=== PATIENT | female | born 1990 | race Two or more races ===

== ENCOUNTER → 2017-03-26 | Outpatient (REF) | payer OTHER | LOC: M SFHCPLAZ 09:14 | DX: Z12.4 Encounter for screening for malignant neoplasm of cervix (principal) ==

== ENCOUNTER → 2017-11-20 | Outpatient (REF) | payer SELFPAY, OTHER ==
[2017-11-20 14:13] LABS: ALBUMIN 3.8 GM/DL (3.2-5.2); ALBUMIN/GLOBULIN RATIO 1.12 (1.00-1.93); ALKALINE PHOSPHATASE 81 U/L (45-117); ALT/SGPT 14 U/L (12-78); ANION GAP 9 MEQ/L (8-16); AST/SGOT 9 U/L (7-37); BILIRUBIN,TOTAL 0.3 MG/DL (0.2-1.0); BLOOD UREA NITROGEN 13 MG/DL (7-18); CALCIUM LEVEL 9.3 MG/DL (8.5-10.1); CARBON DIOXIDE LEVEL 27 MEQ/L (21-32); CHLORIDE LEVEL 107 MEQ/L (98-107); CREATININE FOR GFR 0.86 MG/DL (0.55-1.30); GLOMERULAR FILTRATION RATE > 60.0 (>60); GLUCOSE, FASTING 67 MG/DL (70-100); LIPASE 126 U/L (73-393); POTASSIUM SERUM 4.6 MEQ/L (3.5-5.1); SODIUM LEVEL 143 MEQ/L (136-145); TOTAL PROTEIN 7.2 GM/DL (6.4-8.2)
== END ==
LOC: M SFHCPLAZ 11:41
DX: R10.13 Epigastric pain (principal)
CPT/HCPCS: 83690

== ENCOUNTER 2018-02-13 11:16 | Emergency (ER) | payer OTHER ==
[2018-02-13] MEDS: ACETAMINOPH W/CODEINE #3 TAB UD PO (12:30)
== END 2018-02-13 12:37 | disposition home or self-care (01) ==
LOC: M ED 11:16
DX: S30.0XXA Contusion of lower back and pelvis, initial encounter (principal); W10.8XXA Fall (on) (from) other stairs and steps, initial encounter; Y92.018 Other place in single-family (private) house as the place of occurrence of the external cause; Z79.899 Other long term (current) drug therapy
CPT/HCPCS: 72220

== ENCOUNTER → 2018-04-16 | Outpatient (CLI) | payer OTHER ==
[~2018-04-16] MED LIST: DEBL1TAB PO; IBUP-1114 PO; TYLE325T5 PO; VITAPRTA PO
--- NOTE | 2018-04-16 10:35 | REP ---
Clinical: Palpable mass. Technique: Real time lopez scale and color evaluation using linear high frequency transducer. Findings: Directed ultrasound examination of the right groin at the site of palpable mass demonstrates normal appearing lymph nodes measuring up to 1.6 x 0.5 x 1.0 cm. No evidence for hernia, fluid collection, or mass lesion. Impression: Palpable mass corresponds to few normal appearing lymph nodes in the right groin. Electronically Signed by Liban Hoffman MD 04/16/2018 10:25 A
== END ==
LOC: M RAD 10:00
PROVIDERS: ATTEND Family Medicine
DX: R19.09 Other intra-abdominal and pelvic swelling, mass and lump (principal)

== ENCOUNTER → 2018-06-13 | Outpatient (CLI) | payer MEDICAID, OTHER ==
--- NOTE | 2018-06-13 13:40 | REP ---
Clinical: Left hip pain and sciatica. Technique: Neutral and frog lateral views of the left hip. Findings: No acute fracture dislocation. Skeletal structures, joint spaces, and surrounding soft tissues are normal. Impression: Normal left hip radiographs. Electronically Signed by Liban Hoffman MD 06/13/2018 01:32 P
--- NOTE | 2018-06-13 13:40 | REP ---
Clinical: Left shoulder pain . Technique: Internal rotation, external rotation, and Y view. Findings: No acute fracture or dislocation. The acromioclavicular and glenohumeral joints are intact. No periarticular calcifications or degenerative changes are appreciated. Sub acromial space is normal. Surrounding soft tissues are unremarkable. Impression: Normal left shoulder radiographs. Electronically Signed by Liban Hoffman MD 06/13/2018 01:31 P
== END ==
LOC: M RAD 13:13
PROVIDERS: ATTEND Family Medicine
DX: M25.552 Pain in left hip (principal); M25.512 Pain in left shoulder

== ENCOUNTER → 2018-06-13 | Outpatient (REF) | payer MEDICAID, OTHER ==
[2018-06-13 13:37] LABS: FREE T4 1.05 NG/DL (0.76-1.46); HCG, SERUM QUANTITATIVE < 1.0 MIU/ML; THYROID STIMULATING HORMONE 0.537 uIU/ML (0.358-3.740)
[2018-06-14 16:40] LABS: ANTINUCLEAR ANTIBODIES DIRECT Negative (Negative)
== END ==
LOC: M SFHCPLAZ 10:47
PROVIDERS: ATTEND Family Medicine
DX: M25.552 Pain in left hip (principal); N92.6 Irregular menstruation, unspecified

== ENCOUNTER 2018-06-16 12:50 | Outpatient (RCR) | payer MEDICAID, OTHER | END 2018-07-15 | LOC: M PT 12:50 | PROVIDERS: ATTEND Family Medicine | DX: M25.551 Pain in right hip (principal) ==

== ENCOUNTER → 2019-01-05 | Outpatient (REF) | payer MEDICAID, OTHER ==
[2019-01-05 19:18] LABS: CHLAMYDIA DNA AMPLIFICATION NEGATIVE (NEGATIVE); GC DNA AMPLIFICATION NEGATIVE (NEGATIVE)
== END ==
LOC: M LAB REF 14:48
PROVIDERS: ATTEND Physician Assistant
DX: R30.0 Dysuria (principal)

== ENCOUNTER → 2019-01-19 | Outpatient (CLI) | payer OTHER ==
[2019-01-19 13:44] LABS: BASO # 0.1 10^3/uL (0.0-0.2); BASO % 0.7 % (0.0-1.0); EOS # 0.1 10^3/uL (0.0-0.5); EOS % 1.5 % (0.0-3.0); HEMATOCRIT 42.5 % (36.0-47.0); HEMOGLOBIN 13.4 g/dl (12.0-15.5); LYMPH # 2.9 10^3/uL (1.5-5.0); LYMPH % 32.6 % (24.0-44.0); MEAN CORPUSCULAR HEMOGLOBIN 30.5 pg (27.0-33.0); MEAN CORPUSCULAR HGB CONC 31.5 g/dl (32.0-36.5); MEAN CORPUSCULAR VOLUME 96.6 fl (80.0-96.0); MONO # 0.7 10^3/uL (0.0-0.8); MONO % 7.8 % (0.0-5.0); NEUTROPHILS % 57.1 % (36.0-66.0); PLATELET COUNT, AUTOMATED 273 10^3/uL (150-450); WHITE BLOOD COUNT 8.8 10^3/uL (4.0-10.0)
[2019-01-19 13:57] LABS: ALBUMIN 3.8 GM/DL (3.2-5.2); ALT/SGPT 30 U/L (12-78); BILIRUBIN,TOTAL 0.3 MG/DL (0.2-1.0); BLOOD UREA NITROGEN 11 MG/DL (7-18); CARBON DIOXIDE LEVEL 26 MEQ/L (21-32); CHLORIDE LEVEL 104 MEQ/L (98-107); CREATININE FOR GFR 0.73 MG/DL (0.55-1.30); GLOMERULAR FILTRATION RATE > 60.0 (>60); GLUCOSE, FASTING 80 MG/DL (70-100); HCG, SERUM QUANTITATIVE 336 MIU/ML; LIPASE 78 U/L (73-393); POTASSIUM SERUM 4.3 MEQ/L (3.5-5.1); SODIUM LEVEL 139 MEQ/L (136-145); TOTAL PROTEIN 6.9 GM/DL (6.4-8.2)
== END ==
LOC: M WUC 10:53
PROVIDERS: ATTEND Physician Assistant
DX: R10.11 Right upper quadrant pain (principal)

== ENCOUNTER 2019-01-25 22:30 | Emergency (ER) | payer OTHER ==
[~2019-01-25] VITALS: Ht 149.9 cm; Wt 54.5 kg
[2019-01-25] MEDS ORDERED: FLUO20CA19 (22:36)
[2019-01-26 00:21] LABS: BASO # 0.1 10^3/uL (0.0-0.2); BASO % 0.8 % (0.0-1.0); EOS # 0.2 10^3/uL (0.0-0.5); EOS % 1.8 % (0.0-3.0); HEMATOCRIT 40.2 % (36.0-47.0); HEMOGLOBIN 12.8 g/dl (12.0-15.5); LYMPH # 3.9 10^3/uL (1.5-5.0); LYMPH % 34.2 % (24.0-44.0); MEAN CORPUSCULAR HEMOGLOBIN 30.5 pg (27.0-33.0); MEAN CORPUSCULAR HGB CONC 31.8 g/dl (32.0-36.5); MEAN CORPUSCULAR VOLUME 95.7 fl (80.0-96.0); MONO # 0.9 10^3/uL (0.0-0.8); MONO % 7.9 % (0.0-5.0); NEUTROPHILS # 6.2 10^3/uL (1.5-8.5); NEUTROPHILS % 54.2 % (36.0-66.0); PLATELET COUNT, AUTOMATED 280 10^3/uL (150-450); WHITE BLOOD COUNT 11.4 10^3/uL (4.0-10.0)
[2019-01-26 00:23] LABS: APPEARANCE, URINE CLEAR (CLEAR); BACTERIA, URINE AUTO NEGATIVE (NEGATIVE); BILIRUBIN, URINE AUTO NEGATIVE (NEGATIVE); BLOOD, URINE BLOOD 3+ (NEGATIVE); COLOR, URINE YELLOW (YELLOW); GLUCOSE, URINE (UA) AUTO NEGATIVE (NEGATIVE); KETONE, URINE AUTO NEGATIVE (NEGATIVE); LEUKOCYTE ESTERASE, URINE AUTO NEGATIVE (NEGATIVE); MUCUS, URINE SMALL (NEGATIVE); NITRITE, URINE AUTO NEGATIVE (NEGATIVE); PROTEIN, URINE AUTO NEGATIVE (NEGATIVE); RBC, URINE AUTO 1 /HPF (0-3); SPECIFIC GRAVITY URINE AUTO 1.019 (1.002-1.035); SQUAMOUS EPITHELIAL CELL UR AU 1 /HPF (0-6); UROBILINOGEN, URINE AUTO 0.2 mg/dL (0.0-2.0); WBC, URINE AUTO 0 /HPF (0-3)
--- NOTE | 2019-01-26 00:26 | REPVR ---
PROCEDURE INFORMATION: Exam: US Pelvis, Transvaginal Exam date and time: 01/25/2019 11:36 PM Clinical history: 28 years old, female; TECHNIQUE: Imaging protocol: Real-time transvaginal pelvic ultrasound with image documentation. Transvaginal imaging was used for better evaluation of the endometrium and adnexa. COMPARISON: No relevant prior studies available. FINDINGS: Uterus/cervix: The uterus measures 8.2 CM in length by 4.4 CM in AP dimension by 5.3 CM in transverse dimension. The endometrium measures 7 mm and uniformly echogenic. There is no intrauterine gestational sac. Gestation: Microscopic ectopic could not be excluded and recommend correlation with hCG levels and followup scans. Right adnexa: The right ovary measures 1.9 cm length by 1.7 CM in thickness and there is vascular flow. Left adnexa: The left ovary measures 2.5 CM in length by 2.3 CM in thickness and there is vascular flow. Bladder: The urinary bladder appears within the range of normal. Free fluid: There is no evidence of free fluid. Other findings: No adnexal mass can be detected. IMPRESSION: 1. No evidence of intrauterine gestational sac. 2. Microscopic ectopic could not be excluded and recommend correlation with hCG levels and followup scans. Electronically signed by: Tarik Roca On 01/26/2019 00:29:07 AM
[2019-01-26 01:12] VITALS: BP 122/70
--- NOTE | 2019-01-26 07:07 | ED PDOC ---
Post-Departure Follow-Up radiology report faxed to Ivette Martinez MD Jan 26, 2019 07:07
== END 2019-01-26 01:26 | disposition home or self-care (01) ==
LOC: M ED 22:30
DX: O20.0 Threatened abortion (principal); O26.851 Spotting complicating pregnancy, first trimester; Z3A.01 Less than 8 weeks gestation of pregnancy; Z79.899 Other long term (current) drug therapy

== ENCOUNTER → 2019-02-24 | Outpatient (REF) | payer OTHER ==
[~2019-02-24] MED LIST changes: +FLUO20CA19
== END ==
LOC: M LAB REF 12:35
PROVIDERS: ATTEND Obstetrics & Gynecology
DX: O02.1 Missed abortion (principal)

== ENCOUNTER → 2019-05-06 | Outpatient (REF) | payer OTHER ==
[~2019-05-06] MED LIST changes: -FLUO20CA19; +FLUO20CA22
[2019-05-06 23:48] LABS: CHLAMYDIA DNA AMPLIFICATION NEGATIVE (NEGATIVE); GC DNA AMPLIFICATION NEGATIVE (NEGATIVE)
== END ==
LOC: M LAB REF 20:04
PROVIDERS: ATTEND Physician Assistant
DX: N39.0 Urinary tract infection, site not specified (principal)

== ENCOUNTER → 2019-09-02 | Outpatient (REF) | payer OTHER ==
[2019-09-02 17:48] LABS: HEMATOCRIT 41.4 % (36.0-47.0); HEMOGLOBIN 13.7 g/dl (12.0-15.5); MEAN CORPUSCULAR HEMOGLOBIN 30.9 pg (27.0-33.0); MEAN CORPUSCULAR HGB CONC 33.1 g/dl (32.0-36.5); MEAN CORPUSCULAR VOLUME 93.5 fl (80.0-96.0); PLATELET COUNT, AUTOMATED 265 10^3/uL (150-450); RED BLOOD COUNT 4.43 10^6/uL (4.00-5.40); WHITE BLOOD COUNT 10.8 10^3/uL (4.0-10.0)
[2019-09-02 18:10] LABS: HCG, SERUM QUANTITATIVE 21940 MIU/ML
[2019-09-02 18:44] LABS: HIV 1&2 SCREEN CENTAUR NEGATIVE (NEGATIVE)
[2019-09-04 18:39] LABS: HEPATITIS B SURFACE ANTIGEN NEGATIVE (NEGATIVE)
[2019-09-04 19:07] LABS: HEPATITIS C VIRUS ABY INDEX 0.2 INDEX (<0.8)
== END ==
LOC: M LAB REF 17:29
PROVIDERS: ATTEND Obstetrics & Gynecology
DX: O36.80X0 Pregnancy with inconclusive fetal viability, not applicable or unspecified (principal)

== ENCOUNTER → 2019-09-08 | Outpatient (CLI) | payer OTHER ==
--- NOTE | 2019-09-09 03:26 | REP ---
REASON: Supervision of other normal . Transvesical imaging was obtained. Within the uterus, there is an anechoic structure with increased echoes surrounding it, consistent with a decidual reaction. Within the gestational sac, there is echogenic material, consistent with a pole, the mean crown-rump length measurement of which is consistent with a 7-week 2-day gestational age. Based on that, the estimated date of delivery is 04/24/2020. Doppler interrogation of the heart shows a heart rate of 134 beats per minute. There is no evidence of a chorionic or subchorionic abnormality. A small area of decreased echoes is seen adjacent to the developing chorion; however, it is likely secondary to chorionic non-fusion since the patient has no complaints of vaginal bleeding rather than a subchorionic hemorrhage. This, however, should be correlated clinically. Evaluation of the maternal adnexal spaces showed no abnormalities. IMPRESSION: Early OB ultrasound, as described above.
== END ==
LOC: M WHC 15:31
PROVIDERS: ATTEND Obstetrics & Gynecology
DX: Z36.87 Encounter for antenatal screening for uncertain dates (principal); Z3A.01 Less than 8 weeks gestation of pregnancy

== ENCOUNTER → 2019-12-11 | Outpatient (CLI) | payer OTHER ==
--- NOTE | 2019-12-17 18:05 | REP ---
OBSTETRIC SONOGRAPHY HISTORY: Supervision of for anatomy. FINDINGS: Scanning through the gravid uterus demonstrates a single intrauterine gestation in a variable lie. motion is observed and heart rate is recorded at 142 beats per minute. A fundal right-sided placenta is seen grade 1 without evidence of previa. Amniotic fluid is subjectively normal. Closed cervical length is 4.1 cm measured transabdominally. No extrauterine abnormality is observed. No abnormality is observed. The following anatomic structures are identified and felt to be unremarkable: cranium and intracranial contents, nuchal fold, face and profile, four chamber heart with left and right ventricular outflow tract views, diaphragmatic, left-sided stomach, abdominal wall cord insertion, kidneys and bladder, spine, upper and lower extremities, three-vessel cord. BIOMETRY CHART: BPD 4.8 cm 20 weeks 3 days Head circumference 18.3 cm 20 weeks 5 days Abdominal circumference 17.6 cm 22 weeks 4 days Femur length 3.4 cm 20 weeks 5 days Humeral length 3.3 cm 21 weeks 1 day AC/HC ratio 1.04 (1.05 to 1.24) Cephalic index 0.71 Normal Estimated weight 432 grams, 0 pounds 15 ounces, 51st percentile for 21 weeks 1 day. IMPRESSION: Single living intrauterine gestation at 21 weeks 1 day by todays composite sonographic criteria. Estimated date of delivery (SHUN) by todays sonography 04/21/2020. anatomic survey was felt to be complete. MTDD
== END ==
LOC: M WHC 13:15
PROVIDERS: ATTEND Obstetrics & Gynecology
DX: Z34.82 Encounter for supervision of other normal pregnancy, second trimester (principal); Z3A.21 21 weeks gestation of pregnancy

== ENCOUNTER → 2020-03-01 | Outpatient (REF) | payer OTHER | LOC: M PLALAB 14:07 | PROVIDERS: ATTEND Obstetrics & Gynecology | DX: Z34.93 Encounter for supervision of normal pregnancy, unspecified, third trimester (principal); Z3A.32 32 weeks gestation of pregnancy ==

== ENCOUNTER → 2020-03-31 | Outpatient (REF) | payer OTHER | LOC: M PLALAB 17:37 | PROVIDERS: ATTEND Obstetrics & Gynecology | DX: Z3A.37 37 weeks gestation of pregnancy (principal) ==

== ENCOUNTER → 2020-04-04 | Outpatient (REF) | payer OTHER ==
[~2020-04-04] MED LIST changes: +ADV250INH INH
== END ==
LOC: M SFHCWAGY 16:58
PROVIDERS: ATTEND Obstetrics & Gynecology
DX: Z3A.37 37 weeks gestation of pregnancy (principal)

== ENCOUNTER 2020-04-18 12:41 | Inpatient (IN) | payer OTHER ==
[~2020-04-18] VITALS: Ht 152.4 cm; Wt 70.6 kg
[2020-04-18] VITALS (32 sets, daily range): BP systolic 95–145; BP diastolic 51–82
[~2020-04-18 12:41] MED LIST changes: -ADV250INH INH
--- OUTSIDE RECORDS SUMMARY | 2020-04-18 12:46 | CCD ---
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 Active 68156 001 Problem Panic disorder F41.0 Active 347360320 Problem Moderate persistent asthma without complication J4 5.40 Active 682689316 Problem Other chronic pain G89.29 Active 43884988 ALLERGIES No Known Allergies ENCOUNTERS from 1992 to 2020-01-22 Encounter Location Date Provider Diagnosis [address] [id number] Sep, Kaya Velazquez IMMUNIZATIONS No Information SOCIAL HISTORY Tobacco Use: Social History Observation Description Date Details (start date - stop date) Current Smoker Sex Assigned At : Social History Observation Description Sex Assigned At Unknown Education: Question Answer Notes Level of Education: Not finished High School Audit Question Answer Notes Total Score: 0 Interpretation: Alcohol Education Language: Question Answer Notes Languages spoken: [place] Voodoo: Question Answer Notes Voodoo 33 None Domestic Violence: Question Answer Notes Status: Sexual Hx: Question Answer Notes Had sex in the last 12 months (vaginal, oral, or anal)? Yes Have you ever had an STD? No Prevention Strategies discussed: Condoms with Men only Use protection? Yes How often? Some of the time Drug and Alcohol Question Answer Notes Total Score: 0 Interpretation: No problems reported Alcohol Screening: Question Answer Notes Did you have a drink containing alcohol in the past year? Ye s Points 1 Interpretation Negative How often did you have six or more drinks on one occas ion in the past year? Never (0 points) How many drinks did you have on a typica l day when you were drinking in the past year? 1 or 2 (0 points) How often did you have a drink containing alcohol in t he past year? Monthly or less (1 point) Tobacco Use: Question Answer Notes Are you a: current smoker Are you interested in quitting? Ready to quit Counseled the patient on tobacco use, cessation provided 06/2019 REASON FOR REFERRAL No Information VITAL SIGNS No information MEDICATIONS Medication SIG (Take, Route, Frequency, Duration) Start Date En d Date Status Sertraline HCl 50 MG 1 tablet Orally Once a day for 30 day(s) 2019 Active Singulair 10 MG 1 tablet in the evening Orally Once a day Active Alprazolam 0.5 MG 1 tablet as needed Orally Twice a day; M DD #2 Jan, Active Ventolin HFA 108 (90 Base) MCG/ACT 2 puffs as needed Inhalat ion every 6 hrs Jan, Active Fluticasone Propionate 50 MCG/ACT 1 spray in each nostril Nasall y Once a day Active Cetirizine HCl 10 MG 1 tablet on the tongue and a llow to dissolve Orally Once a day for 90 day(s) July, Active Arnuity Ellipta 100 MCG/ACT 1 puff Inhalation Once a day Mar, 19 Active PROCEDURES No Information RESULTS No Results REASON FOR VISIT missed appts MEDICAL (GENERAL) HISTORY Type Description Date Medical History Moderate persistent asthma Medical History Depression Medical History Anxiety and panic attacks Medical History Smoker - 3 cig/day Surgical History teeth extracted 04/2018 Hospitalization History Childbirth 10/13/2014 Hospitalization History Childbirth 01/25/2016 Goals Section No Information Health Concerns No Information MEDICAL EQUIPMENT No Information MENTAL STATUS No Information FUNCTIONAL STATUS No Information ASSESSMENTS No Information PLAN OF TREATMENT Medication Medication Name Sig Start Date Stop Date Sertraline HCl 50 MG 1 tablet Orally Once a day for 30 day(s) Aug, Fluticasone Propionate 50 MCG/ACT 1 spray in each nostril Nasall y Once a day Cetirizine HCl 10 MG 1 tablet on the tongue and a llow to dissolve Orally Once a day for 90 day(s) July, Ventolin HFA 108 (90 Base) MCG/ACT 2 puffs as needed Inhalat ion every 6 hrs Jan, Singulair 10 MG 1 tablet in the evening Orally Once a day Alprazolam 0.5 MG 1 tablet as needed Orally Twice a day; M DD #2 Jan, Arnuity Ellipta 100 MCG/ACT 1 puff Inhalation Once a day Mar, Insurance Providers Payer Name Payer Address Payer Phone Insured Name Patient Relati onship to Insured Coverage Start Date Coverage End Date [facility] [address] [facility] [id number] GERARDO DUONG
--- OUTSIDE RECORDS SUMMARY | 2020-04-18 12:46 | CCD ---
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 Active 43722 001 Problem Panic disorder F41.0 Active 522293053 Problem Cigarette nicotine dependence without complication F17.210 Active 013289908 Problem Supervision of other normal Z34.80 Ac tive 413531436 Problem Generalized anxiety disorder F41.1 Active 218 00845 Problem Moderate persistent asthma without complication J4 5.40 Active 652588720 Problem Other chronic pain G89.29 Active 96462870 Problem Seasonal allergic rhinitis, unspecified trigger J3 0.2 Active 054980209 ALLERGIES No Known Allergies ENCOUNTERS from 1992 to 2020-03-08 Encounter Location Date Provider Diagnosis [facility] [address] [place] [id number] 15 Feb, 2020 Ana Riley Smoking (tobacco) co mplicating , third trimester O99.333 ; Cigarette nicotine dependence, uncomplicated F17.210 ; Maternal care for (suspected) chromosomal abnormality in fetus, not applicable or unspecified O35.1XX0 and 32 weeks gestation of Z3A.32 IMMUNIZATIONS No Information SOCIAL HISTORY Tobacco Use: Social History Observation Description Date Details (start date - stop date) Current Smoker Sex Assigned At : Social History Observation Description Sex Assigned At Unknown Education: Question Answer Notes Level of Education: Not finished High School Audit Question Answer Notes Total Score: 0 Interpretation: Alcohol Education Language: Question Answer Notes Languages spoken: Arabic Baptist: Question Answer Notes Baptist 33 None Domestic Violence: Question Answer Notes [...] REASON FOR REFERRAL No Information VITAL SIGNS Weight 152.6 lbs Feb, Height 60 in Feb, BMI 29.803 kg/m2 Feb, Blood pressure systolic 98 mm Hg Feb, Blood pressure diastolic 62 mm Hg Feb, MEDICATIONS Medication SIG (Take, Route, Frequency, Duration) Notes Start Da te End Date Status Arnuity Ellipta 100 MCG/ACT 1 puff Inhalation Once a day 2 Mar, Active FLUoxetine HCl 10 MG 1 capsule Orally Once a day Active Sertraline HCl 50 MG 1 tablet Orally Once a day for 30 day(s) Aug, Not-Taking Cetirizine HCl 10 MG 1 tablet on the tongue and a llow to dissolve Orally Once a day for 90 day(s) July, Active Fluticasone Propionate 50 MCG/ACT 1 spray in each nostril Nasall y Once a day Active Zofran 4 MG 1 tablet Orally Once a day Active Ventolin HFA 108 (90 Base) MCG/ACT 2 puffs as needed Inhalation every 6 hrs Jan, Active Singulair 10 MG 1 tablet in the evening Orally Once a day Active Alprazolam 0.5 MG 1 tablet as needed Orally Twice a day; MDD ___ #2 Jan, Not-Taking 27-1 MG 1 tablet Orally Once a day Active PROCEDURES No Information RESULTS No Results REASON FOR VISIT 1ST PN TRANSFER [facility] [place] MEDICAL (GENERAL) HISTORY Type Description Date Medical History Moderate persistent asthma Medical History Depression Medical History Anxiety and panic attacks Medical History Smoker - 3 cig/day Surgical History teeth extracted 04/2018 Hospitalization History Childbirth 10/13/2014 Hospitalization History Childbirth 01/25/2016 Goals Section No Information Health Concerns No Information MEDICAL EQUIPMENT No Information MENTAL STATUS No Information FUNCTIONAL STATUS No Information ASSESSMENTS Encounter Date Diagnosis Assessment Notes Treatment Notes Treatm ent Clinical Notes Feb, Smoking (tobacco) complicati ng , third trimester (ICD-10 - O99.333) Feb, Cigarette nicotine dependence, uncomplicated (IC D-10 - F17.210) Feb, Maternal care for (suspected ) chromosomal abnormality in fetus, not applicable or unspecified (ICD-10 - O35.1XX0) Feb, 32 weeks gestation of (ICD-10 - Z3A.32 ) PLAN OF TREATMENT Treatment Notes Test Name Order Date CBC - Complete Blood Count 2020-03-08 Glucose Challenge Test 1 Hour 2020-03-08 Next Appt Details 2 Weeks Reason:PN Provider Name:Ana Ngo Osvaldo, 2020-03 02:40:00 PM, [address] [place], [address], Follow Up:2 WeeksPN Insurance Providers Payer Name Payer Address Payer Phone Insured Name Patient Relati onship to Insured Coverage Start Date Coverage End Date [facility] [address] [facility] [phone] GERARDO DUONG
--- OUTSIDE RECORDS SUMMARY | 2020-04-18 12:46 | CCD ---
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 Active 64411 001 Problem Panic disorder F41.0 Active 089617478 Problem Moderate persistent asthma without complication J4 5.40 Active 755331117 Problem Other chronic pain G89.29 Active 02879957 ALLERGIES No Known Allergies ENCOUNTERS from 1992 to 2020-01-25 Encounter Location Date Provider Diagnosis [address] [address] Jan, Kaya Velazquez IMMUNIZATIONS No Information SOCIAL HISTORY Tobacco Use: Social History Observation Description Date Details (start date - stop date) Current Smoker Sex Assigned At : Social History Observation Description Sex Assigned At Unknown Education: Question Answer Notes Level of Education: Not finished High School Audit Question Answer Notes Total Score: 0 Interpretation: Alcohol Education Language: Question Answer Notes Languages spoken: B[place]ian Lutheran: Question Answer Notes Lutheran 33 None Domestic Violence: Question Answer Notes [...] Duration) Start Date En d Date Status Ventolin HFA 108 (90 Base) MCG/ACT 2 puffs as needed Inhalat ion every 6 hrs Jan, Active Singulair 10 MG 1 tablet in the evening Orally Once a day Active Alprazolam 0.5 MG 1 tablet as needed Orally Twice a day; M DD #2 Jan, Active Sertraline HCl 50 MG 1 tablet Orally Once a day for 30 day(s) 2019 Active Fluticasone Propionate 50 MCG/ACT 1 spray in each nostril Nasall y Once a day Active Cetirizine HCl 10 MG 1 tablet on the tongue and a llow to dissolve Orally Once a day for 90 day(s) July, Active Arnuity Ellipta 100 MCG/ACT 1 puff Inhalation Once a day Mar, 19 Active PROCEDURES No Information RESULTS No Results REASON FOR VISIT Medication MEDICAL (GENERAL) HISTORY Type Description Date Medical [...] Medication Name Sig Start Date Stop Date Ventolin HFA 108 (90 Base) MCG/ACT 2 puffs as needed Inhalat ion every 6 hrs Jan, Fluticasone Propionate 50 MCG/ACT 1 spray in each nostril Nasall y Once a day Cetirizine HCl 10 MG 1 tablet on the tongue and a llow to dissolve Orally Once a day for 90 day(s) July, Sertraline HCl 50 MG 1 tablet Orally Once a day for 30 day(s) Aug, Singulair 10 MG 1 tablet in the evening Orally Once a day Alprazolam 0.5 MG 1 tablet as needed Orally Twice a day; M DD #2 Jan, Arnuity Ellipta 100 MCG/ACT 1 puff Inhalation Once a day Mar, Insurance Providers Payer Name Payer Address Payer Phone Insured Name Patient Relati onship to Insured Coverage Start Date Coverage End Date [facility] [address] [facility] [phone] GERARDO DUONG
--- OUTSIDE RECORDS SUMMARY | 2020-04-18 12:46 | CCD ---
Author Author [facility] Organization [facility] Address Unknown Phone Unavailable Care Team Providers Care Nurses Educator Name Role Phone RICHARD BOYD Unavailable Unavailable CHACHA, KIM PA Unavailable Unavailable CHACHA, KIM PA Unavailable Unavailable CHACHA, KIM PA Unavailable Unavailable CHACHA, KIM PA Unavailable Unavailable CHACHA, KIM PA Unavailable Unavailable CHACHA, KIM PA Unavailable Unavailable CHACHA, KIM PA Unavailable Unavailable CHACHA, KIM PA Unavailable Unavailable CHACHA, KIM PA Unavailable Unavailable CHACHA, KIM PA Unavailable Unavailable CHACHA, KIM PA Unavailable Unavailable CHACHA, KIM PA Unavailable Unavailable CHACHA, KIM PA Unavailable Unavailable CHACHA, KIM PA Unavailable Unavailable CHACHA, KIM PA Unavailable Unavailable CHACHA, KIM PA Unavailable Unavailable CHACHA, KIM PA Unavailable Unavailable CHACHA, KIM PA Unavailable Unavailable CHACHA, KIM PA Unavailable Unavailable CHACHA, KIM PA Unavailable Unavailable CHACHA, KIM PA Unavailable Unavailable CHACHA, KIM PA Unavailable Unavailable CHACHA, KIM PA Unavailable Unavailable CHACHA, KIM PA Unavailable Unavailable CHACHA, KIM PA Unavailable Unavailable CHACHA, KIM PA Unavailable Unavailable CHACHA, KIM PA Unavailable Unavailable CHACHA, KIM PA Unavailable Unavailable CHACHA, KIM PA Unavailable Unavailable CHACHA, KIM PA Unavailable Unavailable CHACHA, KIM PA Unavailable Unavailable CHACHA, KIM PA Unavailable Unavailable CHACHA, KIM PA Unavailable Unavailable CHACHA, KIM PA Unavailable Unavailable CHACHA, KIM PA Unavailable Unavailable CHACHA, KIM PA Unavailable Unavailable CHACHA, KIM PA Unavailable Unavailable CHACHA, KIM PA Unavailable Unavailable Dodard, Wesley DO Unavailable Unavailable Dodard, Wesley DO Unavailable Unavailable Dodard, Ewsley DO Unavailable Unavailable Dodard, Wesley DO Unavailable Unavailable Dodard, Wesley DO Unavailable Unavailable Dodard, Wesley DO Unavailable Unavailable Dodard, Wesley DO Unavailable Unavailable Dodard, Wesley DO Unavailable Unavailable Dodard, Wesley DO Unavailable Unavailable Dodard, Wesley DO Unavailable Unavailable Dodard, Wesley DO Unavailable Unavailable Dodard, Wesley DO Unavailable Unavailable Dodard, Wesley DO Unavailable Unavailable Dodard, Wesley DO Unavailable Unavailable Dodard, Wesley DO Unavailable Unavailable Dodard, Wesley DO Unavailable Unavailable Dodard, Wesley DO Unavailable Unavailable Dodard, Wesley DO Unavailable Unavailable Dodard, Wesley DO Unavailable Unavailable Dodard, Wesley DO Unavailable Unavailable Dodard, Wesley DO Unavailable Unavailable Dodard, Wesley DO Unavailable Unavailable Dodard, Wesley DO Unavailable Unavailable Dodard, Wesley DO Unavailable Unavailable Dodard, Wesley DO Unavailable Unavailable Dodard, Wesley DO Unavailable Unavailable Dodard, Wesley DO Unavailable Unavailable Dodard, Wesley DO Unavailable Unavailable Dodard, Wesley DO Unavailable Unavailable Dodard, Wesley DO Unavailable Unavailable Dodard, Wesley DO Unavailable Unavailable Dodard, Wesley DO Unavailable Unavailable Dodard, Wesley DO Unavailable Unavailable Dodard, Wesley DO Unavailable Unavailable Dodard, Wesley DO Unavailable Unavailable Dodard, Wesley DO Unavailable Unavailable Dodard, Wesley DO Unavailable Unavailable Dodard, Wesley DO Unavailable Unavailable Dodard, Wesley DO Unavailable Unavailable Dodard, Wesley DO Unavailable Unavailable Dodard, Wesley DO Unavailable Unavailable Dodard, Wesley DO Unavailable Unavailable Dodard, Wesley DO Unavailable Unavailable Dodard, Wesley DO Unavailable Unavailable VERÓNICAIVIANEY MS Unavailable Unavailable VIANEY CHANEY MS Unavailable Unavailable Re-disclosure Warning The records that you are about to access may contain information from federally-assisted alcohol or drug abuse programs. If such information is present, then the following federally mandated warning applies: This information has been disclosed to you from records protected by federal confidentiality rules (42 CFR part 2). The federal rules prohibit you from making any further disclosure of this information unless further disclosure is expressly permitted by the written consent of the person to whom it pertains or as otherwise permitted by 42 CFR part 2. A general authorization for the release of medical or other information is NOT sufficient for this purpose. The Federal rules restrict any use of the information to criminally investigate or prosecute any alcohol or drug abuse patient.The records that you are about to access may contain highly sensitive health information, the redisclosure of which is protected by Article 27-F of the [facility] Public Health law. If you continue you may have access to information: Regarding HIV / AIDS; Provided by facilities licensed or operated by the [facility] Office of Mental Health; or Provided by the [facility] Office for People With Developmental Disabilities. If such information is present, then the following [facility] mandated warning applies: This information has been disclosed to you from confidential records which are protected by state law. State law prohibits you from making any further disclosure of this information without the specific written consent of the person to whom it pertains, or as otherwise permitted by law. Any unauthorized further disclosure in violation of state law may result in a fine or half-way sentence or both. A general authorization for the release of medical or other information is NOT sufficient authorization for further disc losure. Encounters Encounter Providers Location Date Indications Data Source(s ) ( ESTOB) [facility] OB [address] [place] [address] 04/04/2020 12:00:00 AM EST eCW1 ([facility]) ([facility]) [facility] OB Visit [address] [place] [address] 03/01/2020 12:00:00 AM EST eCW1 ([facility]) Outpatient Referrer: Wesley Johnston DO 02/02/2020 12:00:00 AM [facility] Outpatient Attender: RICHARD BOYDReferrer: Wesley duran DO 02/02/2020 12:00:00 AM [facility] Outpatient Referrer: Wesley Johnston DO 02/02/2020 12:00:00 AM [facility] Unknown [address] [facility] [address] 01/22/2020 12:00:00 AM EST eCW1 ([facility]) Outpatient Attender: RICHARD Butler tender: AMBREEN CHANEY MSReferrer: Wesley Johnston DO 12/29/2019 12:00:00 AM [facility] Outpatient Referrer: Wesley Johnston DO 12/29/2019 12:00:00 AM [facility] Outpatient Attender: RICHARD BOYDReferrer: Wesley duran DO 12/22/2019 12:00:00 AM [facility] Outpatient Referrer: Wesley Johnston DO 12/22/2019 12:00:00 AM [facility] Outpatient Referrer: Wesley Johnston DO 12/22/2019 12:00:00 AM [facility] Outpatient Referrer: Wesley Johnston DO 12/08/2019 12:00:00 AM [facility] Outpatient Attender: RICHARD BODYReferrer: Wesley duran DO 12/08/2019 12:00:00 AM [facility] Outpatient Referrer: Wesley Johnston DO 12/08/2019 12:00:00 AM [facility] Unknown [address] [facility] [address] 09/30/2019 12:00:00 AM EDT eCW1 ([facility]) [facility] [place] [address] [facility] [address] 09/22/2019 12:00:00 AM EDT eCW1 ([facility]) [place] [address] [facility] [address] 08/27/2019 12:00:00 AM EDT eCW1 ([facility]) [facility] [place] [address] [place] [address] 08/11/2019 12:00:00 AM EDT eCW1 ([facility]) [facility] [place] [address] [facility] [address] 07/21/2019 12:00:00 AM EDT eCW1 ([facility]) [address] [address] 07/20/2019 12:00:00 AM EDT eCW1 ([facility]) [address] [address] 07/08/2019 12:00:00 AM EDT eCW1 ([facility]) [address] [address] 06/22/2019 12:00:00 AM EDT eCW1 ([facility]) Outpatient Attender: KIM buchanan 05/06/2019 02:10:00 PM EST [facility]ENT ([facility]) [address] [address] 04/27/2019 12:00:00 AM EST eCW1 ([facility]) Medications Medication Brand Name Start Date Product Form Dose Route Admi nistrative Instructions Pharmacy Instructions Status Indications Reaction Description Data Source(s) 150 mg 01/14/2020 12:00:00 AM EDT tablet 1 TAKE 1 TABLET BY MOUTH TAKE 1 TABLET BY MOUTH SOLD: 01/14/2020 [facility] Ceftriaxone 1000 MG Injection CEFTRIAXONE SODIUM 12/18/2019 12:0 0:00 AM EDT recon soln 1 DIRECTED AT OFFICE DIRECTED AT OFFICE SOLD: 04/2019 [facility] 4 mg 12/17/2019 12:00:00 AM EDT tablet 30 TAKE ONE TABLET BY MOUTH EVERY 6 HOURS NEEDED NAUSEA TAKE ONE TABLET BY MOUTH EVERY 6 HOURS NEEDED NAUSE A SOLD: 04/01/2020 [facility] 4 mg 12/17/2019 12:00:00 AM EDT tablet 30 TAKE ONE TABLET BY MOUTH EVERY 6 HOURS NEEDED NAUSEA TAKE ONE TABLET BY MOUTH EVERY 6 HOURS NEEDED NAUSE A SOLD: 12/17/2019 [facility] Cephalexin 500 MG Oral Capsule CEPHALEXIN 12/17/2019 12:00:00 AM EDT capsule 56 TAKE ONE CAPSULE BY MOUTH EVERY 6 HOURS FOR 14 DAYS TA KE ONE CAPSULE BY MOUTH EVERY 6 HOURS FOR 14 DAYS SOLD: 12/17/2019 [facility] 4 mg 12/17/2019 12:00:00 AM EDT tablet 30 TAKE ONE TABLET BY MOUTH EVERY 6 HOURS NEEDED NAUSEA TAKE ONE TABLET BY MOUTH EVERY 6 HOURS NEEDED NAUSE A SOLD: 04/14/2020 [facility] 4 mg 12/17/2019 12:00:00 AM EDT tablet 30 TAKE ONE TABLET BY MOUTH EVERY 6 HOURS NEEDED NAUSEA TAKE ONE TABLET BY MOUTH EVERY 6 HOURS NEEDED NAUSE A SOLD: 02/16/2020 [facility] 4 mg 12/09/2019 12:00:00 AM EDT tablet,disintegrating 3 0 DISSOLVE TWO TABLETS ON TONGUE EVERY 12 HOURS NEEDED FOR NAUSEA DISSOLVE TWO TABLETS ON TONGUE EVERY 12 HOURS NEEDED FOR NAUSEA SOLD: 12/11/2019 [facility] 4 mg 10/28/2019 12:00:00 AM EDT tablet 30 TAKE ONE TABLET BY MOUTH EVERY 4 HOURS NEEDED FOR NAUSEA TAKE ONE TABLET BY MOUTH EVERY 4 HOURS A S NEEDED FOR NAUSEA SOLD: 10/28/2019 [facility] 4 mg 09/11/2019 12:00:00 AM EDT tablet 30 TAKE ONE TABLET BY MOUTH EVERY 4 HOURS NEEDED FOR NAUSEA TAKE ONE TABLET BY MOUTH EVERY 4 HOURS A S NEEDED FOR NAUSEA SOLD: 09/11/2019 [facility] 4 mg 09/11/2019 12:00:00 AM EDT tablet 30 TAKE ONE TABLET BY MOUTH EVERY 4 HOURS NEEDED FOR NAUSEA TAKE ONE TABLET BY MOUTH EVERY 4 HOURS A S NEEDED FOR NAUSEA SOLD: 09/29/2019 [facility] Sertraline 50 MG Oral Tablet Sertraline HCl 50 MG Sertraline HCl 50 MG 08/27/2019 12:00:00 AM EDT 1.0 {tablet} suspende d Sertraline HCl 50 MG eCW1 ([facility]) Sertraline 50 MG Oral Tablet Sertraline HCl 50 MG Sertraline HCl 50 MG 08/27/2019 12:00:00 AM EDT 1.0 {tablet} active Sertraline HCl 50 MG eCW1 ([facility]) 50 mg 08/27/2019 12:00:00 AM EDT tablet 30 TAKE ONE TABLET BY MOUTH EVERY DAY TAKE ONE TABLET BY MOUTH EVERY DAY SOLD: 08/28/2019 [facility] Sertraline 50 MG Oral Tablet Sertraline HCl 50 MG Sertraline HCl 50 MG 08/27/2019 12:00:00 AM EDT 1.0 {tablet} suspende d Sertraline HCl 50 MG eCW1 ([facility]) Sertraline 50 MG Oral Tablet Sertraline HCl 50 MG Sertraline HCl 50 MG 08/27/2019 12:00:00 AM EDT 1.0 {tablet} active Sertraline HCl 50 MG eCW1 ([facility]) 50 mg 08/27/2019 12:00:00 AM EDT tablet 30 TAKE ONE TABLET BY MOUTH EVERY DAY TAKE ONE TABLET BY MOUTH EVERY DAY SOLD: 09/29/2019 [facility] Sertraline 50 MG Oral Tablet Sertraline HCl 50 MG Sertraline HCl 50 MG 08/27/2019 12:00:00 AM EDT 1.0 {tablet} active Sertraline HCl 50 MG eCW1 ([facility]) 20 mg 07/21/2019 12:00:00 AM EDT capsule 90 TAKE ONE CAPSULE BY MOUTH EVERY DAY TAKE ONE CAPSULE BY MOUTH EVERY DAY SOLD: 07/21/2019 [facility] Cetirizine HCl 10 MG UNK 07/20/2019 12:00:00 AM EDT 1.0 {tablet_on_the_tongue_and_allow_to_dissolve} activ e Cetirizine HCl 10 MG eCW1 ([facility]) Cetirizine HCl 10 MG UNK 07/20/2019 12:00:00 AM EDT 1.0 {tablet_on_the_tongue_and_allow_to_dissolve} activ e Cetirizine HCl 10 MG eCW1 ([facility]) Cetirizine HCl 10 MG UNK 07/20/2019 12:00:00 AM EDT active 1 tablet on the tongue and allow to dissolve eCW1 ([facility]) Cetirizine HCl 10 MG UNK 07/20/2019 12:00:00 AM EDT 1.0 {tablet_on_the_tongue_and_allow_to_dissolve} activ e Cetirizine HCl 10 MG eCW1 ([facility]) Fluoxetine 20 MG Oral Tablet FLUoxetine HCl 20 MG FLUoxetine HCl 20 MG 07/20/2019 12:00:00 AM EDT active 1 tablet eCW1 ([facility]) Cetirizine HCl 10 MG UNK 07/20/2019 12:00:00 AM EDT 1.0 {tablet_on_the_tongue_and_allow_to_dissolve} activ e Cetirizine HCl 10 MG eCW1 ([facility]) Cetirizine HCl 10 MG UNK 07/20/2019 12:00:00 AM EDT 1.0 {tablet_on_the_tongue_and_allow_to_dissolve} activ e Cetirizine HCl 10 MG eCW1 ([facility]) 20 mg 07/09/2019 12:00:00 AM EDT capsule 180 TAKE TWO CAPSULES BY MOUTH EVERY DAY TAKE TWO CAPSULES BY MOUTH EVERY DAY SOLD: 07/10/2019 [facility] Alprazolam 0.5 MG Oral Tablet ALPRAZOLAM 07/09/2019 12:00:00 AM EDT ta blet 60 TAKE ONE TABLET BY MOUTH TWICE A DAY NEEDED MAXIMUM DAILY DOSE = 2 TABLETS TAKE ONE TABLET BY MOUTH TWICE A DAY NEEDED MAXIMUM DAILY DOSE = 2 TABLETS SOLD: 07/10/2019 [facility] NITROFURANTOIN, MACROCRYSTALS 25 MG / Ni trofurantoin, Monohydrate 75 MG Oral Capsule [Macrobid] Macrobid 05/06/2019 12:00:00 AM EST ORAL active [facility] ([facility], [facility]) 100 mg 05/06/2019 12:00:00 AM EST capsule 10 TAKE ONE CAPSULE BY MOUTH TWICE A DAY WITH FOOD FOR 5 DAYS TAKE ONE CAPSULE BY MOUTH TWICE A DAY WI TH FOOD FOR 5 DAYS SOLD: 05/07/2019 [facility] 100 mcg/actuation 04/27/2019 12:00:00 AM EST blister with de vice 30 INHALE ONE PUFF BY MOUTH EVERY DAY INHALE ONE PUFF BY MOUTH EVERY DAY SOLD: 06/07/2019 [facility] 90 mcg/actuation 04/27/2019 12:00:00 AM EST HFA aerosol inha ler 18 INHALE TWO PUFFS BY MOUTH EVERY 6 HOURS INHALE TWO PUFFS BY MOUTH EVERY 6 HOURS SOLD: 04/28/2019 [facility] 150-35 mcg/24 hr 04/27/2019 12:00:00 AM EST patch weekly 3 APPLY 1 PATCH TO SKIN ONCE A WEEK FOR 3 WEEKS THEN 1 WEEK OFF DIRECTED APPLY 1 PATCH TO SKIN ONCE A WEEK FOR 3 WEEKS THEN 1 WEEK OFF DIRECTED SOLD: 04/28/2019 [facility] 100 mcg/actuation 04/27/2019 12:00:00 AM EST blister with de vice 30 INHALE ONE PUFF BY MOUTH EVERY DAY INHALE ONE PUFF BY MOUTH EVERY DAY SOLD: 04/28/2019 [facility] 168 HR Ethinyl Estradiol 0.84400 MG/HR / norelgestromin 0.89093 MG/HR Transdermal Patch [Xulane] Xulane 150-35 MCG/24HR Xulane 150-35 MCG/24HR 04/27/2019 12:00:00 AM EST active 1 patch to skin off 1 week then repeat on the same day every week eCW1 ([facility]) 90 mcg/actuation 04/27/2019 12:00:00 AM EST HFA aerosol inha ler 18 INHALE TWO PUFFS BY MOUTH EVERY 6 HOURS INHALE TWO PUFFS BY MOUTH EVERY 6 HOURS SOLD: 07/10/2019 [facility] 150-35 mcg/24 hr 04/27/2019 12:00:00 AM EST patch weekly 3 APPLY 1 PATCH TO SKIN ONCE A WEEK FOR 3 WEEKS THEN 1 WEEK OFF DIRECTED APPLY 1 PATCH TO SKIN ONCE A WEEK FOR 3 WEEKS THEN 1 WEEK OFF DIRECTED SOLD: 07/10/2019 [facility] 150-35 mcg/24 hr 04/27/2019 12:00:00 AM EST patch weekly 3 APPLY 1 PATCH TO SKIN ONCE A WEEK FOR 3 WEEKS THEN 1 WEEK OFF DIRECTED APPLY 1 PATCH TO SKIN ONCE A WEEK FOR 3 WEEKS THEN 1 WEEK OFF DIRECTED SOLD: 06/07/2019 [facility] 100 mcg/actuation 04/27/2019 12:00:00 AM EST blister with de vice 30 INHALE ONE PUFF BY MOUTH EVERY DAY INHALE ONE PUFF BY MOUTH EVERY DAY SOLD: 07/10/2019 [facility] 90 mcg/actuation 04/27/2019 12:00:00 AM EST HFA aerosol inha ler 18 INHALE TWO PUFFS BY MOUTH EVERY 6 HOURS INHALE TWO PUFFS BY MOUTH EVERY 6 HOURS SOLD: 06/07/2019 [facility] 168 HR Ethinyl Estradiol 0.05301 MG/HR / norelgestromin 0.68071 MG/HR Transdermal Patch [Xulane] Xulane 150-35 MCG/24HR Xulane 150-35 MCG/24HR 04/27/2019 12:00:00 AM EST active 1 patch to skin off 1 week then repeat on the same day every week eCW1 ([facility]) Insurance Providers Payer name Policy type / Coverage type Policy ID Covered libertarian ID Covered libertarian's relationship to cheney Policy Cheney Plan Information [employer] MCDO [id number] SP [id number] [facility] O [id number] S [id number] [employer] MCDO [id number] SP [id number] MEDICAID [id number] SP [id number] ANSI-Not a Secondary Insurance [id number] ANSI-Medicaid [id number] ANSI-Medicaid [id number] ANSI-Medicaid [id number] ANSI-Not a Secondary Insurance [id number] ANSI-Medicaid [id number] ANSI-Medicaid [id number] ANSI-Not a Secondary Insurance [id number] ANSI-Medicaid [id number] ANSI-Medicaid [id number] MEDICAID [id number] SP [id number] [facility] [id number] ANSI-Not a Secondary Insurance [id number] ANSI-Medicaid [id number] ANSI-Medicaid [id number] ANSI-Not a Secondary Insurance [id number] ANSI-Medicaid [id number] ANSI-Not a Secondary Insurance [id number] [facility] [id number] ANSI-Medicaid [id number] ANSI-Not a Secondary Insurance [id number] [facility] [id number] SP [id number] [facility] [id number] SP [id number] ANSI-Medicaid [id number] ANSI-Not a Secondary Insurance [id number] ANSI-Medicaid [id number] ANSI-Not a Secondary Insurance [id number] [facility]) O [id number] S [id number] ANSI-Medicaid [id number] ANSI-Not a Secondary Insurance [id number] [facility] [id number] SP [id number] [facility] [id number] SP [id number] SELF PAY ONLY [id number] SP [id number] ANSI-Medicaid [id number] ANSI-Not a Secondary Insurance [id number] ANSI-Medicaid [id number] ANSI-Not a Secondary Insurance [id number] ANSI-Medicaid [id number] ANSI-Not a Secondary Insurance [id number] ANSI-Not a Secondary Insurance [id number] ANSI-Medicaid [id number] MEDICAID [id number] SP [id number] [facility] [id number] SP [id number] [facility] [id number] SP [id number] [facility] [id number] SP [id number] SELF PAY UNAVAILABLE SP UNAVAILA BLE Problems, Conditions, and Diagnoses Code Display Name Description Problem Type Effective Dates Data Source(s) Z34.80 care Supervision of other normal P kyara 02/10/2020 12:00:00 AM EST eCW1 ([facility]) J30.2 [id number] Seasonal allergic rhinitis, unspecified t urgent care physician Problem 07/20/2019 12:00:00 AM EDT eCW1 ([facility]) F17.210 Tobacco user Cigarette nicotine dependence without com plication Problem 07/20/2019 12:00:00 AM EDT eCW1 ([facility]) F17.210 Tobacco user Cigarette nicotine dependence without com plication Problem 07/20/2019 12:00:00 AM EDT eCW1 ([facility]) J30.2 [id number] Seasonal allergic rhinitis, unspecified t urgent care physician Problem 07/20/2019 12:00:00 AM EDT eCW1 ([facility]) Results ID Date Data Source GROUP B STREP CULTURE 04/04/2020 12:00:00 AM EST eCW1 ([facility]) Name Value Range Interpretation Code Description Data Adelaida rce(s) Supporting Document(s) GROUP B STREP CULTURE eCW1 ([facility]) ID Date Data Source [id number] 05/06/2019 03:22:00 PM EST [facility] ([facility]) Name Value Range Interpretation Code Description Data Adelaida rce(s) Supporting Document(s) Bacteria identified in Urine by Culture <pending> [facility] ([facility], [facility]) Procedure Social History Code Duration Value Status Description Data Source(s ) Smoking 04/04/2020 12:00:00 AM EST Current Smoker completed Curre nt Smoker eCW1 ([facility]) Smoking 02/10/2020 12:00:00 AM EST Current Smoker completed Curre nt Smoker eCW1 ([facility]) Smoking 07/20/2019 12:00:00 AM EDT Current Smoker completed Curre nt Smoker eCW1 ([facility]) Smoking 07/20/2019 12:00:00 AM EDT Current Smoker completed Curre nt Smoker eCW1 ([facility]) Smoking 07/20/2019 12:00:00 AM EDT Current Smoker completed Curre nt Smoker eCW1 ([facility]) Vital Signs ID Date Data Source UNK Name Value Range Interpretation Code Description Data Source(s) Diastolic blood pressure 80 mm[Hg] 80 mm[Hg] eCW1 ([facility]) Systolic blood pressure 112 mm[Hg] 112 mm[Hg] e CW1 ([facility]) Body mass index (BMI) [Ratio] 30.896 kg/m2 30.8 96 kg/m2 eCW1 ([facility]) Body height 60 [in_i] 60 [in_i] eCW1 ([facility]) Body weight 71.76 kg 71.76 kg eCW1 ([facility]) Body weight 158.2 [lb_av] 158.2 [lb_av] eCW1 ([facility]) Diastolic blood pressure 62 mm[Hg] 62 mm[Hg] eCW1 ([facility]) Systolic blood pressure 98 mm[Hg] 98 mm[Hg] e CW1 ([facility]) Body mass index (BMI) [Ratio] 29.803 kg/m2 29.8 03 kg/m2 eCW1 ([facility]) Body height 60 [in_i] 60 [in_i] eCW1 ([facility]) Body weight 152.6 [lb_av] 152.6 [lb_av] eCW1 ([facility]) Diastolic blood pressure 66 mm[Hg] 66 mm[Hg] eCW1 ([facility]) Systolic blood pressure 120 mm[Hg] 120 mm[Hg] e CW1 ([facility]) Body temperature 97.7 [degF] 97.7 [degF] eCW1 ( [facility]) Respiratory rate 18 /min 18 /min eCW1 ([facility]) Heart rate 77 /min 77 /min eCW1 ([facility]) Body mass index (BMI) [Ratio] 25.00 kg/m2 25.00 kg/m2 eCW1 (Formerly [facility]) Body height 60 [in_us] 60 [in_us] eCW1 ([facility]) Body weight Measured 128 [lb_av] 128 [lb_av] eC W1 (Formerly [facility]) Body mass index (BMI) [Ratio] 24.6 kg/m2 24.6 k g/m2 MEDENT ([facility], [facility]) Body height 60 [in_i] 60 [in_i] MEDENT ([facility], [facility]) 5'0" Body weight 126.00 [lb_av] 126.00 [lb_av] MEDEN T ([facility], [facility]) Body temperature 98.3 [degF] 98.3 [degF] MEDENT ([facility], [facility]) Oxygen saturation in Arterial blood by Pulse oximetry 99 % 99 % MEDENT ([facility]) Respiratory rate 12 /min 12 /min MEDENT ( [facility], [facility]) Heart rate 75 /min 75 /min MEDENT ([facility], [facility]) Diastolic blood pressure 81 mm[Hg] 81 mm[Hg] MEDENT ([facility], [facility]) Systolic blood pressure 117 mm[Hg] 117 mm[Hg] M EDENT ([facility]) Diastolic blood pressure 58 mm[Hg] 58 mm[Hg] eCW1 (Formerly [facility]) Systolic blood pressure 100 mm[Hg] 100 mm[Hg] e CW1 (Formerly [facility]) Body temperature 98.1 [degF] 98.1 [degF] eCW1 ( [facility]) Respiratory rate 18 /min 18 /min eCW1 ([facility]) Heart rate 83 /min 83 /min eCW1 ([facility]) Body mass index (BMI) [Ratio] 25.00 kg/m2 25.00 kg/m2 eCW1 (Formerly [facility]) Body height 60 [in_us] 60 [in_us] eCW1 ([facility]) Body weight Measured 128 [lb_av] 128 [lb_av] eC W1 (Formerly [facility]) Patient Treatment Plan of Care Planned Activity Planned Date Details Description Data Source (s) Sertraline 50 MG Oral Tablet 08/27/2019 12:00:00 AM EDT eCW1 (Formerly [facility]) Sertraline 50 MG Oral Tablet 08/27/2019 12:00:00 AM EDT eCW1 (Formerly [facility]) Sertraline 50 MG Oral Tablet 08/27/2019 12:00:00 AM EDT eCW1 (Formerly [facility]) Cetirizine HCl 10 MG 07/20/2019 12:00:00 AM EDT eCW1 (Formerly [facility]) Cetirizine HCl 10 MG 07/20/2019 12:00:00 AM EDT eCW1 (Formerly [facility]) Cetirizine HCl 10 MG 07/20/2019 12:00:00 AM EDT eCW1 (Formerly [facility]) Fluoxetine 20 MG Oral Tablet 07/20/2019 12:00:00 AM EDT eCW1 (Formerly [facility]) Cetirizine HCl 10 MG 07/20/2019 12:00:00 AM EDT eCW1 (Formerly [facility]) 168 HR Ethinyl Estradiol 0.18052 MG/HR / norelgestromin 0.03220 MG/HR Transdermal Patch [Yevgeniy] 04/27/2019 12:00:00 AM EST eCW1 (Formerly [facility])
--- OUTSIDE RECORDS SUMMARY | 2020-04-18 12:46 | CCD ---
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 Active 12817 001 Problem Panic disorder F41.0 Active 918671909 Problem Cigarette nicotine dependence without complication F17.210 Active 975881975 Problem Supervision of other normal Z34.80 Ac tive 812660296 Problem Generalized anxiety disorder F41.1 Active 218 80867 Problem Moderate persistent asthma without complication J4 5.40 Active 185545440 Problem Other chronic pain G89.29 Active 35958201 Problem Seasonal allergic rhinitis, unspecified trigger J3 0.2 Active 481116595 ALLERGIES No Known Allergies ENCOUNTERS from 1992 to 2020-04-08 Encounter Location Date Provider Diagnosis [facility] [address] [place] [id number] Mar, Ana Riley 37 weeks gestation o f Z3A.37 ; Smoking (tobacco) complicating , third trimester O99.333 ; Maternal care for (suspected) chromosomal abnormality in fetus, not applicable or unspecified O35.1XX0 and Cigarette smoker F17.210 IMMUNIZATIONS No Information SOCIAL HISTORY Tobacco Use: Social History Observation Description Date Details (start date - stop date) Current Smoker Sex Assigned At : Social History Observation Description Sex Assigned At Unknown Education: Question Answer Notes Level of Education: Not finished High School Audit Question Answer Notes Total Score: 0 Interpretation: Alcohol Education Language: Question Answer Notes Languages spoken: Thai Restorationism: Question Answer Notes Restorationism 33 None Domestic Violence: Question Answer Notes [...] FOR REFERRAL No Information VITAL SIGNS Weight 158.2 lbs Mar, Weight-kg 71.76 kg Mar, Height 60 in Mar, BMI 30.896 kg/m2 Mar, Blood pressure systolic 112 mm Hg Mar, Blood pressure diastolic 80 mm Hg Mar, MEDICATIONS Medication SIG (Take, Route, Frequency, Duration) Notes Start Da te End Date Status FLUoxetine HCl 10 MG 1 capsule Orally Once a day Active Fluticasone Propionate 50 MCG/ACT 1 spray in each nostril Nasall y Once a day Active Cetirizine HCl 10 MG 1 tablet on the tongue and a llow to dissolve Orally Once a day for 90 day(s) July, Active Ventolin HFA 108 (90 Base) MCG/ACT 2 puffs as needed Inhalation every 6 hrs Jan, Active Arnuity Ellipta 100 MCG/ACT 1 puff Inhalation Once a day 2 Mar, Active Sertraline HCl 50 MG 1 tablet Orally Once a day for 30 day(s) Aug, Not-Taking Alprazolam 0.5 MG 1 tablet as needed Orally Twice a day; MDD ___ #2 Jan, Not-Taking Zofran 4 MG 1 tablet Orally Once a day Active 27-1 MG 1 tablet Orally Once a day Active Singulair 10 MG 1 tablet in the evening Orally Once a day Active PROCEDURES No Information RESULTS Component Value Reference Range GROUP B STREP CULTURE Reviewed date:04/07/2020 08:26:06 Interpretation: Performing Lab:[facility], [facility] [address] [facility] [id number] , ,[place] [id number] REASON FOR VISIT 4WK PN MEDICAL (GENERAL) HISTORY Type Description Date Medical [...] Notes Treatment Notes Treatm ent Clinical Notes Mar, 37 weeks gestation of (ICD-10 - Z3A.37 ) Mar, Smoking (tobacco) complicati ng , third trimester (ICD-10 - O99.333) Mar, Maternal care for (suspected ) chromosomal abnormality in fetus, not applicable or unspecified (ICD-10 - O35.1XX0) Mar, Cigarette smoker (ICD-10 - F17.210) PLAN OF TREATMENT Next Appt Details 1 Week Reason:PN Provider Name:Ana Riley, 2020-03 03:00:00 PM, [address] [place], [address], Follow Up:1 WeekPN Insurance Providers Payer Name Payer Address Payer Phone Insured Name Patient Relati onship to Insured Coverage Start Date Coverage End Date [facility] [employer] [facility] [address] [facility] [phone] GERARDO DUONG
[2020-04-18] MEDS ORDERED: LACTATED RINGER'S 1000 ML IV STA (13:31)
[2020-04-18 13:57] LABS: HEMATOCRIT 37.1 % (36.0-47.0); HEMOGLOBIN 11.9 g/dl (12.0-15.5); MEAN CORPUSCULAR HEMOGLOBIN 28.4 pg (27.0-33.0); MEAN CORPUSCULAR HGB CONC 32.1 g/dl (32.0-36.5); MEAN CORPUSCULAR VOLUME 88.5 fl (80.0-96.0); PLATELET COUNT, AUTOMATED 304 10^3/uL (150-450); RED BLOOD COUNT 4.19 10^6/uL (4.00-5.40); WHITE BLOOD COUNT 16.2 10^3/uL (4.0-10.0)
--- NOTE | 2020-04-18 13:58 | HPEPDOC ---
Obstetrical History & Physical General Date of Admission Apr 18, 2020 at 12:41 Primary Care Physician: JUDITH CARRASCO CNM History of Present Illness Alia is a 29 y/o at 39.0 weeks, SHUN 04/24/2020 by 1st trimester ultrasound on 09/08/2019 at 7.2 weeks. She started care in the first trimester with Dr. Johnston and transferred care at 32 weeks. Today she presents to L&D for an elective IOL. Reports active movement. Denies regular contractions, vaginal bleeding, and LOF. complicated by a NIPT showing high risk for Monosomy X (1/2), nicotine dependence, anxiety/depression, and asthma. She declined PNC follow up for high risk Monosomy X. Care with [facility] was limited due to transportation difficulties. Chief Complaint: Induction of labor (Elective) Information Provided By: Patient Age: 29 : 5 Term: 2 Pre-term: 0 Abortions: 2 Livin Care Care: Limited Care (Only 3 visits at [facility] from 32-38 weeks) Dating Final EDC: Apr 24, 2020 Final EDC by: 1st trimester (US) LMP: Jul 06, 2019 1st Trimester Date: Sep 08, 2019 Weeks + Days: 7.2 EGA at Admission: 39.0 Antepartum Course Diagnos(e)s NIPT High Risk for Monosomy X (1/2) - declined PNC referral Nicotine Dependence - 3 cigarettes daily Asthma - Ventolin HFA inhaler Anxiety/Depression, taking Zoloft 25mg Past Medical History Past Obstetrical History #1: Past Obstetrical History: Primgravida Date of Delivery: Oct 13, 2014 Gestation: 40.5 Type of Delivery: Spontaneous Vaginal Del. Sex of Infant: Female (6lb 3 oz.) Complications: No Past Obstetrical History #2: Past Obstetrical History: Multigravida Date of Delivery: Jan 25, 2016 Gestation: 39 Type of Delivery: Spontaneous Vaginal Del. 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: Abnormal Pap (05/14/2014 -- [facility]), Other ( Negative Mammogram) Past Medical History Medical History Moderate Persistent Asthma - taking Ventolin HFA regularly, denies taking Singulair and Annuity inhaler during due to nausea Anxiety with panic disorder/Depression - Zoloft 25mg daily Smoker - 3 cigarettes per day Surgical History: Tooth extraction (04/2018) Family History Significant Family History: Diabetes (Mother), Hypertension (Father), Other (Father - Emphysema, pancreatitis, organic brain damage; Son with Autism; Mother-bipolar/schizophrenia, organic brain damage) Social History Marital Status: Family situation: Spouse/partner home Psychosocial History: Anxiety, Depression * Smoker: current smoker (3 cigarettes per day) Alcohol: occationally Drugs: marijuana Allergies Coded Allergies: No Known Allergies (Unverified , 01/25/19) Medications Miscellaneous Medications Fluoxetine Hcl (Fluoxetine HCl) 20 Mg Capsule Physical Examination Physical Examination GENERAL: Alert and oriented times three. ABDOMEN: Gravid and non-tender to touch. FETUS: Is vertex (VTX) by sterile vaginal examination (SVE), fetus is vertex (VTX) by Jas. EFW 6-6.5lbs by Jas's. HEART RATE: Regular rate and rhythm. LUNGS: Clear to auscultation (CTA) bilaterally. EXTREMITIES: No edema. No clonus. Deep tendon reflexes (DTRs) + 2. Laboratory Data 24H LABS Laboratory Tests 2 04/18/20 12:53: Serology Scanned Report Hepatitis B Testing Pertinent Laboratoy Data Blood Type: A+ RBC Antibody Screen: Negative HIV: Negative Hepatitis B: Negative Hepatitis C: Negative Rapid Plasma Reagin: Nonreactive Rubella: Immune Chlamydia/Gonorrhea: Negative Group B Streptococcus: Negative Diag/Inter Therapy GTT not done due to transportation difficulties NIPT High Risk for Monosomy X (1/2) Steroid Therapy Steroid Therapy: No Vaginal Examination Dilation: 4 cm Effacement: 80% Station: -1 Cervical Consistency: Soft Cervical Position: Middle Presentation: Cephalic presentation Assessment Heart Rate (FHR): 140 Variability: Moderate Accelerations: Positive Decelerations: None Tocometer Contractions: Yes Frequency: irregular, greater than 9 min/apart Duration: greater than 60 seconds Strength: palpated as mild, resting tone palp/soft Multi-drug resistant Organism: No history of MDRO Assessment/Plan Assessment Elective IOL IUP at 39.0 weeks Category 1 FHT GBS Negative Plan Admit and orient to Labor and Delivery. Activity as tolerated. Diet: Regular prior to Pitocin, then clear liquids with Pitocin. Group B Streptococcus (GBS) negative. Labs and intravenous (IV) per unit protocol. Counseled on Pitocin and induction of labor (IOL). Lactated Ringers (LR): Bolus 800 mL prior to epidural, then at 125 mL/hr. Consult Anesthesia for epidural per patient desire. Discussed karyotyping from cord blood of given high risk of Monosomy X, patient desires testing. Consent obtained. Anticipate normal spontaneous delivery (). C-S as appropriate. JUDITH CARRASCO CNM Apr 18, 2020 13:25
[2020-04-18] MEDS ORDERED: OXYTOCIN DRIP 30 UNITS in IV 1 EA IV SCH ×2 (14:00→22:41)
[2020-04-18] MEDS ORDERED: ADV250INH INH (14:04)
[2020-04-18] MEDS: LR 1,000 ML IV SCH ×2 (16:01→18:26)
[2020-04-18] MEDS ORDERED: FENTANYL 2MCG/ML ROPIVACAINE 0.2% IN 0.9% NACL 100ML IVBAG As Ordered ONE (17:36)
[2020-04-18] MEDS ORDERED: ePHEDrine SULFATE 25 MG/5 ML(5MG/ML) SYRINGE IV PRN (19:00)
[2020-04-18] MEDS ORDERED: ONDANSETRON 4MG/2ML VIAL IV PRN (19:00)
[2020-04-18] MEDS ORDERED: NALOXONE INJ 0.4MG/1ML VIAL (J2310 PER 1MG) IV PRN (19:00)
[2020-04-18] MEDS ORDERED: EPIDURAL/PCA KEYS XX PRN (19:00)
[2020-04-18] MEDS ORDERED: diphenhydrAMINE 50MG/ML VIAL (J1200) IV PRN (19:00)
[2020-04-18] MEDS ORDERED: FENTANYL/ROPIVACAINE/NACL BAG 100 ML EPIDURAL SCH (19:00)
[2020-04-18] MEDS ORDERED: EPIDURAL COMMENT XX SCH (19:00)
[2020-04-18] MEDS ORDERED: REFRIGERATOR IV KEYS XX PRN (19:00)
[2020-04-18] MEDS ORDERED: LACTATED RINGER'S 1000 ML IV PRN (19:00)
--- NOTE | 2020-04-18 19:22 | IPNPDOC ---
Obstetrical Progress Note Date of Service Apr 18, 2020 Subjective Alia is comfortable with her epidural. Objective Transitional shaking noted post AROM. AROM, for scant amount of clear fluid. Pitocin at 6mu/min. Vital Signs Date Time Temp Pulse Resp B/P (MAP) Pulse Ox O2 Delivery O2 Flow Rate FiO2 04/18/20 19:03 80 18 128/75 (92) 04/18/20 17:59 97.8 Assessment Heart Rate (FHR): 125 Variability: Moderate Accelerations: Positive Decelerations: None Heart Rate Tracing: Category I Tocometer Contractions: Yes Frequency: regular, other (2-3min.) Duration: greater than 60 seconds Strength: palpated as moderate, resting tone palp/soft Sterile Vaginal Examination Dilation: 5 cm Effacement (%): 80% Station: -1 Cervical Consistency: Soft Cervical Position: Middle Postion/Presentation: Cephalic presentation Assessment and Plan Age: 29 : 5 Term: 2 Pre-term: 0 Abortions: 2 Livin EGA at Admission: 39.0 Status: Reassuring Group B Streptococcus: Negative Anticipate: Vaginal Delivery Additional Comments Plan to continue with Pitocin titration. JUDITH CARRASCO CNM Apr 18, 2020 19:22
--- NOTE | 2020-04-18 21:10 | IPNPDOC ---
Obstetrical Progress Note Date of Service Apr 18, 2020 Subjective Patient feeling increased rectal pressure. Objective AROM of forebag for moderate amount of meconium stained fluid. Pitocin at 8 mu/min. Vital Signs Date Time Temp Pulse Resp B/P (MAP) Pulse Ox O2 Delivery O2 Flow Rate FiO2 04/18/20 20:42 81 16 101/58 (72) 04/18/20 17:59 97.8 Assessment Heart Rate (FHR): 125 Variability: Moderate Accelerations: Positive Decelerations: Early Heart Rate Tracing: Category I Tocometer Contractions: Yes Frequency: regular, other (2-3min.) Duration: greater than 60 seconds Strength: palpated as moderate, resting tone palp/soft Sterile Vaginal Examination Dilation: 6 cm Effacement (%): 80% Station: -1 Cervical Consistency: Soft Cervical Position: Anterior Postion/Presentation: Cephalic presentation Assessment and Plan Age: 29 : 5 Term: 2 Pre-term: 0 Abortions: 2 Livin EGA at Admission: 39.0 Status: Reassuring Group B Streptococcus: Negative Anticipate: Vaginal Delivery JUDITH CARRASCO CNM Apr 18, 2020 21:10
[2020-04-18] MEDS ORDERED: RHOGAM 300 MCG (1500 IU) INJ (J2790) IM SCH (22:45)
[2020-04-18] MEDS ORDERED: DOCUSATE SODIUM 100MG CAPSULE PO PRN (22:45)
[2020-04-18] MEDS ORDERED: ACETAMINOPHEN TAB 650MG DOSE (2X325MG) PO PRN (22:45)
[2020-04-18] MEDS ORDERED: ANUSOL HC CREAM 30GM TOP PRN (22:45)
[2020-04-18] MEDS ORDERED: METHYLERGONOVINE MALEATE 0.2 MG TAB PO PRN (22:45)
[2020-04-18] MEDS ORDERED: IBUPROFEN 600MG TAB PO PRN (22:45)
[2020-04-18] MEDS ORDERED: BENZOCAINE 20% HEMORRHOIDAL OINTMENT 28GM TUBE TOP PRN (22:45)
[2020-04-18] MEDS ORDERED: IBUPROFEN 800 MG TAB PO PRN (22:45)
[2020-04-18] MEDS ORDERED: MEASLES,MUMPS,RUBELLA VACCINE INJ (MMR-II) (90707) SC SCH (22:45)
--- NOTE | 2020-04-18 22:45 | DNPDOC ---
[facility] [place] Delivery Note Delivery Note DATE OF DELIVERY: 04/18/20 @ 2215 PREDELIVERY DIAGNOSIS: 39-0/7 weeks' gestation and elective IOL. POST DELIVERY DIAGNOSIS: Delivered. PROCEDURE: Spontaneous vaginal delivery. PROVIDER: Judith Rivera CNM, TELLO and FAN Oates ANESTHESIA: Epidural. ESTIMATED BLOOD LOSS: 250 mL. FINDINGS: 6 pound 15 ounce, 3150g, Female infant, Score 8/9, loose nuchal cord times 1, meconium stained fluid, 50% chance of monosomy X. DELIVERY SUMMARY: Alia is a 29-year-old 5 now para 3-0-2-3 who was admitted to labor and delivery for an elective IOL. Pitocin was started and she received an epidural. Full dilation at 2208. head delivered OA with restitution to LOT, anterior shoulder delivered with ease and corpus followed. Loose nuchal cord reduced after delivery. stimulated and placed skin to skin on maternal abdomen, vigorous. Cord clamped x2 and cut by FOB. Cord blood for karyotyping collected with consent. 3 vessel cord noted. Intact placenta delivered via Swann mechanism at 2220. Fundal massage and IV Pitocin bolus started. Fundus firm at U-2, small flow. Vagina, cervix, and perineum inspected and noted to be intact. Sponges and sharps counted and correct. Parents plan to name "Opal Perkins" and formula feed her. Mother and infant left in stable condition. Parents declined 4 hour NICU observation per recommendation of neonatology, Dr. Smith. Dr. Smith aware and ordered bedside pulse oximetry. JUDITH RIVERA CNM Apr 18, 2020 22:45
[2020-04-19 00:01] VITALS: BP 120/76
[2020-04-19 00:42] VITALS: BP 123/73
[2020-04-19] MEDS: ACETAMINOPHEN 500 MG TAB PO PRN ×2 (01:03→21:42)
[2020-04-19 06:00] VITALS: BP 111/74
--- NOTE | 2020-04-19 07:13 | IPNPDOC ---
Progress Note Date of Service: Apr 19, 2020 Day#: 1 Progress Note SUBJECT: Alia is a 29-year-old 5 now Para 3-0-2-3 status post uncomplicated spontaneous vaginal delivery, doing well day # 1. She has been ambulating, voiding spontaneously without issue and tolerating regular diet. Reports lochia is like a normal period. Pain well controlled with Tylenol and Motrin. Denies chest pain, SOB, headache, visual changes, nausea, epigastric pain. OBJECTIVE: VITAL SIGNS: Within normal limits, afebrile. Alert and oriented times three. Respirations regular, no accessory muscle use. Abdomen: Fundus firm at U-2. Soft, NTTP. Extremities: No edema, no calf tenderness. Minimal lochia. ASSESSMENT: Day 1 PLAN: 1. Discharge to home tomorrow. 2. Tylenol and Motrin for pain. 3. Encourage PO hydration and ambulation. 4. May shower today. 5. Nursing care per policy. VS, I&O, 24H, Fishbone Vital Signs/I&O Vital Signs Date Time Temp Pulse Resp B/P (MAP) Pulse Ox O2 Delivery O2 Flow Rate FiO2 04/19/20 06:00 98.1 86 16 111/74 (86) 100 Room Air I&O- Last 24 Hours up to 6 AM 04/19/20 06:00 Intake Total 2955 ml Output Total 1500 ml Balance 1455 ml Laboratory Data 24H LABS Laboratory Tests 2 04/18/20 12:53: Serology Scanned Report Hepatitis B Testing 04/18/20 13:35: Nucleated Red Blood Cells % (auto) 0.0, Syphilis Serology NONREACTIVE CBC/BMP Laboratory Tests 04/18/20 13:35 JUDITH CARRASCO CNM Apr 19, 2020 07:13
[2020-04-19] MEDS: SERTRALINE HCL 25 MG TABLET PO SCH (09:54)
[2020-04-19] MEDS: PRENATAL VITAMINS CHEWABLE TABLET PO SCH (09:54)
[2020-04-19 18:00] VITALS: BP 129/80
[2020-04-20 06:00] VITALS: BP 128/89
[2020-04-20] MEDS: SERTRALINE HCL 25 MG TABLET PO SCH (08:01)
[2020-04-20] MEDS: PRENATAL VITAMINS CHEWABLE TABLET PO SCH (08:01)
== END 2020-04-20 11:35 | disposition home or self-care (01) | DRG 560 ==
LOC: M LDI 12:41 → M OBS 04-19 00:54
PROVIDERS: ADMIT Advanced Practice Midwife; ATTEND Advanced Practice Midwife
PROC: 10E0XZZ Delivery of Products of Conception, External Approach (ICD-10-PCS; principal; 2020-04-18)
PROC: 3E033VJ Introduction of Other Hormone into Peripheral Vein, Percutaneous Approach (ICD-10-PCS; 2020-04-18)
DX: O99.334 Smoking (tobacco) complicating childbirth (principal); O99.344 Other mental disorders complicating childbirth; F32.9 Major depressive disorder, single episode, unspecified; Z3A.39 39 weeks gestation of pregnancy; Z37.0 Single live birth; F17.210 Nicotine dependence, cigarettes, uncomplicated; J45.909 Unspecified asthma, uncomplicated; F41.9 Anxiety disorder, unspecified; O99.52 Diseases of the respiratory system complicating childbirth

== ENCOUNTER 2021-11-22 16:33 | Emergency (ER) | payer OTHER ==
[~2021-11-22] VITALS: Ht 149.9 cm; Wt 56.8 kg
[~2021-11-22 16:33] MED LIST changes: +ADV250INH INH
[2021-11-22] MEDS ORDERED: ARNU1INH3 (16:57)
[2021-11-22] MEDS ORDERED: VENL37.598 (16:57)
[2021-11-22] MEDS ORDERED: diphenhydrAMINE 25MG CAP PO ONE (18:50)
[2021-11-22] MEDS ORDERED: FAMOTIDINE 20 MG TAB PO ONE (18:50)
[2021-11-22] MEDS ORDERED: dexameTHASONE 20MG/5ML VIAL (J1100 PER 1MG) IM ONE (18:50)
[2021-11-22] MEDS ORDERED: ONDANSETRON 4MG ORAL DISINTEGRATING TAB PO ONE (18:50)
[2021-11-22] MEDS ORDERED: MEDR4PAK PO (19:50)
[2021-11-22 20:14] VITALS: BP 120/68
== END 2021-11-22 20:25 | disposition home or self-care (01) ==
LOC: M ED 16:33
DX: T78.49XA Other allergy, initial encounter (principal); W57.XXXA Bitten or stung by nonvenomous insect and other nonvenomous arthropods, initial encounter; J45.909 Unspecified asthma, uncomplicated; F17.200 Nicotine dependence, unspecified, uncomplicated
CPT/HCPCS: 96372; 99284; J1100

== ENCOUNTER 2021-12-10 20:40 | Emergency (ER) | payer OTHER ==
[~2021-12-10] VITALS: Ht 149.9 cm; Wt 50.1 kg
[~2021-12-10 20:40] MED LIST changes: +ARNU1INH3; +MEDR4PAK PO; +VENL37.598
[2021-12-10 20:41] VITALS: BP 128/81
[2021-12-10] MEDS ORDERED: XANA0.5T PO (20:50)
[2021-12-10] MEDS ORDERED: TRIA25CR TOP (20:50)
[2021-12-10] MEDS ORDERED: AMOX875T2 PO (20:50)
[2021-12-10] MEDS ORDERED: GI COCKTAIL 50ML BTL(HYOSCYAMINE/MAALOX/LIDOCAINE VISCOUS)(1:3:1) PO ONE (22:00)
[2021-12-10] MEDS ORDERED: FAMOTIDINE 20 MG TAB PO ONE (23:05)
[2021-12-10] MEDS ORDERED: OMEPRAZOLE 20MG CAP PO ONE (23:05)
[2021-12-10] MEDS ORDERED: SUCRALFATE 1 GM TAB PO ONE (23:05)
[2021-12-10] MEDS ORDERED: FAMO10TA50 PO (23:06)
[2021-12-10] MEDS ORDERED: CARA1TAB6 PO (23:06)
[2021-12-10] MEDS ORDERED: LIDO2SOL17 PO (23:06)
[2021-12-10] MEDS ORDERED: OMEP-173 PO (23:06)
== END 2021-12-10 23:35 | disposition home or self-care (01) ==
LOC: M ED 20:40
DX: R13.10 Dysphagia, unspecified (principal); J45.909 Unspecified asthma, uncomplicated; F17.200 Nicotine dependence, unspecified, uncomplicated; Z79.899 Other long term (current) drug therapy

== ENCOUNTER → 2021-12-13 | Outpatient (CLI) | payer OTHER ==
[~2021-12-13] MED LIST changes: +AMOX875T2 PO; +CARA1TAB6 PO; +E-Z-GAS II EFFERVESCENT PACKET (SODIUM BICARB./CITRIC ACID/SIMETHICONE) As Ordered ONE; +E-Z-HD 98% w/w 340GM SUSP BTL As Ordered ONE; +E-Z-PAQUE 96% w/w SUSP 176GM BTL As Ordered ONE; +FAMO10TA50 PO; +LIDO2SOL17 PO; +OMEP-173 PO; +TRIA25CR TOP; +XANA0.5T PO
== END ==
LOC: M RAD 10:09
PROVIDERS: ATTEND Physician Assistant
DX: K92.0 Hematemesis (principal); K92.1 Melena

== ENCOUNTER → 2022-08-10 | Outpatient (REF) | payer OTHER ==
[~2022-08-10] MED LIST changes: -E-Z-GAS II EFFERVESCENT PACKET (SODIUM BICARB./CITRIC ACID/SIMETHICONE) As Ordered ONE; -E-Z-HD 98% w/w 340GM SUSP BTL As Ordered ONE; -E-Z-PAQUE 96% w/w SUSP 176GM BTL As Ordered ONE; +LIDO15SO PO; -LIDO2SOL17 PO
[2022-08-10 22:06] LABS: GC DNA AMPLIFICATION NEGATIVE (NEGATIVE)
== END ==
LOC: M LAB REF 18:56
PROVIDERS: ATTEND Physician Assistant
DX: R10.30 Lower abdominal pain, unspecified (principal)

== ENCOUNTER → 2022-09-13 | Outpatient (REF) | payer OTHER ==
[2022-09-13 13:08] LABS: APPEARANCE, URINE HAZY (CLEAR); BACTERIA, URINE AUTO NEGATIVE (NEGATIVE); BILIRUBIN, URINE AUTO NEGATIVE (NEGATIVE); BLOOD, URINE BLOOD NEGATIVE (NEGATIVE); COLOR, URINE YELLOW (YELLOW); GLUCOSE, URINE (UA) AUTO NEGATIVE (NEGATIVE); KETONE, URINE AUTO TRACE mg/dL (NEGATIVE); LEUKOCYTE ESTERASE, URINE AUTO NEGATIVE (NEGATIVE); MUCUS, URINE SMALL (NEGATIVE); NITRITE, URINE AUTO NEGATIVE (NEGATIVE); PROTEIN, URINE AUTO NEGATIVE (NEGATIVE); RBC, URINE AUTO 0 /HPF (0-3); SPECIFIC GRAVITY URINE AUTO 1.028 (1.002-1.035); SQUAMOUS EPITHELIAL CELL UR AU 1 /HPF (0-6); UROBILINOGEN, URINE AUTO 0.2 mg/dL (0.0-2.0); WBC, URINE AUTO 2 /HPF (0-3)
== END ==
LOC: M LAB REF 12:35
PROVIDERS: ATTEND Physician Assistant Medical
DX: N39.0 Urinary tract infection, site not specified (principal)

== ENCOUNTER 2022-09-17 18:30 | Emergency (ER) | payer OTHER ==
[~2022-09-17] VITALS: Ht 165.1 cm; Wt 68.3 kg
[2022-09-17 18:31] VITALS: BP 112/78; TEMP 97; O2SAT 99
[2022-09-17 20:00] LABS: BASO # 0.1 10^3/uL (0.0-0.2); BASO % 0.4 % (0.0-1.0); EOS # 0.1 10^3/uL (0.0-0.5); EOS % 0.4 % (0.0-3.0); HEMATOCRIT 40.4 % (36.0-47.0); HEMOGLOBIN 13.6 g/dl (12.0-15.5); LYMPH % 21.4 % (24.0-44.0); MEAN CORPUSCULAR HEMOGLOBIN 30.4 pg (27.0-33.0); MEAN CORPUSCULAR HGB CONC 33.7 g/dl (32.0-36.5); MEAN CORPUSCULAR VOLUME 90.2 fl (80.0-96.0); MONO # 0.7 10^3/uL (0.0-0.8); MONO % 5.1 % (2.0-8.0); NEUTROPHILS % 72.4 % (36.0-66.0); PLATELET COUNT, AUTOMATED 307 10^3/uL (150-450); RED BLOOD COUNT 4.48 10^6/uL (4.00-5.40); WHITE BLOOD COUNT 13.8 10^3/uL (4.0-10.0)
[2022-09-17 20:18] LABS: LIPASE 25 U/L (12-53)
[2022-09-17 20:21] LABS: ALBUMIN 4.5 G/DL (3.2-5.2); ALKALINE PHOSPHATASE 86 U/L (46-116); ALT/SGPT < 9 U/L (7.0-40); AST/SGOT 16 U/L (<34); BILIRUBIN,DIRECT < 0.1 MG/DL (<0.4); BILIRUBIN,TOTAL 0.4 MG/DL (0.3-1.2); BLOOD UREA NITROGEN 17 MG/DL (9-23); CALCIUM LEVEL 9.5 MG/DL (8.5-10.1); CARBON DIOXIDE LEVEL 26 MMOL/L (20-31); CHLORIDE LEVEL 107 MMOL/L (98-107); CREATININE FOR GFR 0.89 MG/DL (0.55-1.30); GLOMERULAR FILTRATION RATE > 60.0 (>60); GLUCOSE, FASTING 92 MG/DL (60-100); POTASSIUM SERUM 3.7 MMOL/L (3.5-5.1); SODIUM LEVEL 141 MMOL/L (136-145); TOTAL PROTEIN 7.2 G/DL (5.7-8.2)
[2022-09-17 20:25] LABS: HCG, SERUM QUALITATIVE NEGATIVE (NEGATIVE)
== END 2022-09-17 21:28 | disposition left against medical advice (07) ==
LOC: M ED 18:30
DX: Z53.21 Procedure and treatment not carried out due to patient leaving prior to being seen by health care provider (principal)

== ENCOUNTER → 2022-10-03 | Outpatient (REF) | payer OTHER | LOC: M LAB REF 16:36 | PROVIDERS: ATTEND Pediatrics | DX: F41.8 Other specified anxiety disorders (principal) ==

== ENCOUNTER → 2022-10-19 | Outpatient (REF) | payer OTHER ==
[2022-10-19 17:19] LABS: FREE T4 1.05 NG/DL (0.89-1.76); THYROID STIMULATING HORMONE 0.647 uIU/ML (0.55-4.78)
[2022-10-19 19:24] LABS: THYROGLOBULIN ANTIBODY < 15.0 U/ML (<60.0); THYROID PEROXIDASE ANTIBODY < 28.0 U/ML (<60.0)
== END ==
LOC: M LAB REF 16:24
PROVIDERS: ATTEND Pediatrics
DX: R89.1 Abnormal level of hormones in specimens from other organs, systems and tissues (principal)

== ENCOUNTER → 2023-01-03 | Outpatient (REF) | payer OTHER ==
[2023-01-07 14:49] LABS: GC DNA AMPLIFICATION NEGATIVE (NEGATIVE)
== END ==
LOC: M LAB REF 12:32
PROVIDERS: ATTEND Nurse Practitioner Family
DX: R30.0 Dysuria (principal)

== ENCOUNTER 2023-04-23 02:45 | Emergency (ER) | payer OTHER ==
[~2023-04-23] VITALS: Ht 149.9 cm; Wt 59.1 kg
[2023-04-23 03:39] LABS: RSV AMPLIFICATION NEGATIVE (NEGATIVE)
[2023-04-23] MEDS: NS 1,000 ML IV ONE (08:07)
[2023-04-23 08:41] LABS: BASO # 0.1 10^3/uL (0.0-0.2); BASO % 0.5 % (0.0-1.0); EOS % 0.3 % (0.0-3.0); HEMATOCRIT 41.4 % (36.0-47.0); HEMOGLOBIN 13.6 g/dl (12.0-15.5); LYMPH # 2.3 10^3/uL (1.5-5.0); LYMPH % 17.2 % (24.0-44.0); MEAN CORPUSCULAR HEMOGLOBIN 30.2 pg (27.0-33.0); MEAN CORPUSCULAR HGB CONC 32.9 g/dl (32.0-36.5); MEAN CORPUSCULAR VOLUME 91.8 fl (80.0-96.0); MONO # 0.6 10^3/uL (0.0-0.8); MONO % 4.3 % (2.0-8.0); NEUTROPHILS # 10.4 10^3/uL (1.5-8.5); NEUTROPHILS % 77.4 % (36.0-66.0); PLATELET COUNT, AUTOMATED 287 10^3/uL (150-450); RED BLOOD COUNT 4.51 10^6/uL (4.00-5.40); WHITE BLOOD COUNT 13.4 10^3/uL (4.0-10.0)
[2023-04-23 09:10] LABS: LIPASE 30 U/L (12-53)
[2023-04-23 09:12] LABS: ALKALINE PHOSPHATASE 89 U/L (46-116); ALT/SGPT 13 U/L (7.0-40); AST/SGOT 9 U/L (<34); BILIRUBIN,DIRECT < 0.1 MG/DL (<0.4); BILIRUBIN,TOTAL 0.3 MG/DL (0.3-1.2); BLOOD UREA NITROGEN 11 MG/DL (9-23); CALCIUM LEVEL 9.7 MG/DL (8.5-10.1); CARBON DIOXIDE LEVEL 24 MMOL/L (20-31); CHLORIDE LEVEL 107 MMOL/L (98-107); CREATININE FOR GFR 0.78 MG/DL (0.55-1.30); GLOMERULAR FILTRATION RATE > 60.0 (>60); GLUCOSE, FASTING 95 MG/DL (60-100); POTASSIUM SERUM 3.8 MMOL/L (3.5-5.1); SODIUM LEVEL 139 MMOL/L (136-145); TOTAL PROTEIN 7.3 G/DL (5.7-8.2)
[2023-04-23] MEDS: IPRATROPIUM 0.5MG/ALBUTEROL 2.5MG INH SOL UD 3ML (DUONEB) NEB ONE (09:14)
[2023-04-23 09:18] LABS: HCG, SERUM QUALITATIVE NEGATIVE (NEGATIVE)
[2023-04-23] MEDS: KETOROLAC 30 MG/ML 1ML VIAL IV ONE (10:09)
[2023-04-23] MEDS ORDERED: ISOVUE-370 76% 100ML VIAL As Ordered ONE (10:23)
[2023-04-23] MEDS ORDERED: AMOX875T2 PO (11:55)
[2023-04-23] MEDS ORDERED: PRED20TA PO (11:55)
[2023-04-23 12:16] VITALS: BP 121/79; TEMP 98.7; O2SAT 100
[2023-04-23 12:37] LABS: ERYTHROCYTE SEDIMENTATION RATE 28 mm/hr (0-20)
== END 2023-04-23 12:10 | disposition home or self-care (01) ==
LOC: M ED 02:45 → EDBD 02:45 → M ED 12:10
DX: J20.9 Acute bronchitis, unspecified (principal); K52.9 Noninfective gastroenteritis and colitis, unspecified; J45.909 Unspecified asthma, uncomplicated; Z79.2 Long term (current) use of antibiotics; Z79.83 Long term (current) use of bisphosphonates; Z79.52 Long term (current) use of systemic steroids; Z79.899 Other long term (current) drug therapy
CPT/HCPCS: 71045; 74177; 80048; 80076; 81001; 83690; 84703; 85025; 85652; 86140; 87631; 94640; 96361; 96374; 99284; J1885; Q9967

== ENCOUNTER → 2023-07-05 | Outpatient (REF) | payer OTHER ==
[~2023-07-05] MED LIST changes: -LIDO15SO PO; +LIDO15SO8 PO; +PRED20TA PO
[2023-07-05 21:26] LABS: APPEARANCE, URINE CLEAR (CLEAR); BACTERIA, URINE AUTO 1+ (NEGATIVE); BILIRUBIN, URINE AUTO NEGATIVE (NEGATIVE); BLOOD, URINE BLOOD NEGATIVE (NEGATIVE); COLOR, URINE STRAW (YELLOW); GLUCOSE, URINE (UA) AUTO NEGATIVE (NEGATIVE); KETONE, URINE AUTO NEGATIVE (NEGATIVE); LEUKOCYTE ESTERASE, URINE AUTO NEGATIVE (NEGATIVE); MUCUS, URINE SMALL (NEGATIVE); NITRITE, URINE AUTO NEGATIVE (NEGATIVE); PROTEIN, URINE AUTO NEGATIVE (NEGATIVE); RBC, URINE AUTO 0 /HPF (0-3); SPECIFIC GRAVITY URINE AUTO 1.009 (1.002-1.035); SQUAMOUS EPITHELIAL CELL UR AU 1 /HPF (0-6); UROBILINOGEN, URINE AUTO 0.2 mg/dL (0.0-2.0); WBC, URINE AUTO 0 /HPF (0-3)
[2023-07-05 22:50] LABS: GC DNA AMPLIFICATION NEGATIVE (NEGATIVE)
== END ==
LOC: M LAB REF 20:53
PROVIDERS: ATTEND Physician Assistant
DX: N39.0 Urinary tract infection, site not specified (principal)

== ENCOUNTER 2023-07-06 13:13 | Emergency (ER) | payer OTHER ==
[~2023-07-06] VITALS: Ht 149.9 cm; Wt 62.7 kg
[2023-07-06 13:25] VITALS: TEMP 96.4
[2023-07-06] MEDS: ONDANSETRON 4MG 2ML VIAL IV ONE (13:33)
[2023-07-06] MEDS: NS 1,000 ML IV ONE (13:33)
[2023-07-06 13:39] LABS: BASO % 0.6 % (0.0-1.0); EOS # 0.1 10^3/uL (0.0-0.5); EOS % 0.8 % (0.0-3.0); HEMATOCRIT 41.6 % (36.0-47.0); HEMOGLOBIN 14.2 g/dl (12.0-15.5); LYMPH # 2.8 10^3/uL (1.5-5.0); LYMPH % 43.5 % (24.0-44.0); MEAN CORPUSCULAR HEMOGLOBIN 30.5 pg (27.0-33.0); MEAN CORPUSCULAR HGB CONC 34.1 g/dl (32.0-36.5); MEAN CORPUSCULAR VOLUME 89.3 fl (80.0-96.0); MONO # 0.6 10^3/uL (0.0-0.8); MONO % 8.6 % (2.0-8.0); NEUTROPHILS % 46.3 % (36.0-66.0); PLATELET COUNT, AUTOMATED 257 10^3/uL (150-450); RED BLOOD COUNT 4.66 10^6/uL (4.00-5.40); WHITE BLOOD COUNT 6.4 10^3/uL (4.0-10.0)
[2023-07-06] MEDS: ALPRAZolam 0.5 MG TAB PO ONE (13:42)
[2023-07-06 13:52] LABS: INR 1.02; PARTIAL THROMBOPLASTIN TIME 28.6 SECONDS (24.8-34.2); PROTHROMBIN TIME 13.1 SECONDS (12.5-14.5)
[2023-07-06 14:04] LABS: C REACTIVE PROTEIN QUANTITATIV < 0.40 MG/DL (<1.0); ETHYL ALCOHOL (ETHANOL) 0.008 % (0.000-0.010)
[2023-07-06 14:05] LABS: AMYLASE 55 U/L (30-118)
[2023-07-06] MEDS: KETOROLAC 30 MG/ML 1ML VIAL IV ONE (14:19)
[2023-07-06] MEDS: POTASSIUM CHLORIDE 10MEQ SR TABLET PO ONE (14:20)
[2023-07-06 14:21] LABS: HCG, SERUM QUALITATIVE NEGATIVE (NEGATIVE)
[2023-07-06 14:23] LABS: ALBUMIN 3.9 G/DL (3.2-5.2); ALKALINE PHOSPHATASE 81 U/L (46-116); ALT/SGPT 14 U/L (7.0-40); AST/SGOT 23 U/L (<34); BILIRUBIN,DIRECT < 0.1 MG/DL (<0.4); BILIRUBIN,TOTAL 0.2 MG/DL (0.3-1.2); BLOOD UREA NITROGEN 17 MG/DL (9-23); CALCIUM LEVEL 9.3 MG/DL (8.5-10.1); CARBON DIOXIDE LEVEL 19 MMOL/L (20-31); CHLORIDE LEVEL 108 MMOL/L (98-107); CK-MB VALUE MASS < 1.0 NG/ML (<3.6); CPK CREATINE PHOSPHOKINASE 72 U/L (34-145); CREATININE FOR GFR 0.78 MG/DL (0.55-1.30); GLOMERULAR FILTRATION RATE > 60.0 (>60); GLUCOSE, FASTING 149 MG/DL (60-100); LIPASE 26 U/L (12-53); MB/CK RELATIVE INDEX 1.38 (< OR =4); POTASSIUM SERUM 4.1 MMOL/L (3.5-5.1); SODIUM LEVEL 140 MMOL/L (136-145)
[2023-07-06 14:35] LABS: PROCALCITONIN 0.05 ng/ml
[2023-07-06 15:30] VITALS: BP 124/59; O2SAT 100
== END 2023-07-06 16:27 | disposition home or self-care (01) ==
LOC: M ED 13:13
DX: Z04.1 Encounter for examination and observation following transport accident (principal); J06.9 Acute upper respiratory infection, unspecified; F41.9 Anxiety disorder, unspecified; F32.A Depression, unspecified; Z79.899 Other long term (current) drug therapy; Z79.52 Long term (current) use of systemic steroids
CPT/HCPCS: 71045; 73521; 73564; 73610; 80047; 80048; 80076; 82077; 82150; 82550; 82553; 83605; 83690; 84145; 84484; 84702; 84703; 85025; 85610; 85730; 86140; 86850; 86900; 86901; 93041; 94760; 96374; 96375; 99285; J1885; J2405

== ENCOUNTER → 2023-10-23 | Outpatient (REF) ==
[~2023-10-23] MED LIST changes: +FLUO-365; -FLUO20CA22
== END ==
LOC: M EMP 09:05
PROVIDERS: ATTEND Family Medicine
DX: Z11.52 Encounter for screening for COVID-19 (principal)

== ENCOUNTER → 2023-10-31 | Outpatient (REF) | LOC: M EMP 13:33 | PROVIDERS: ATTEND Family Medicine | DX: Z01.89 Encounter for other specified special examinations (principal) ==

== ENCOUNTER 2024-04-16 07:17 | Emergency (ER) | payer OTHER ==
[~2024-04-16] VITALS: Ht 149.9 cm; Wt 61.3 kg
[~2024-04-16 07:17] MED LIST changes: -ADV250INH INH; +ADVA1AER9 INH
[2024-04-16 07:19] VITALS: BP 118/72; TEMP 97.3; O2SAT 98
[2024-04-16] MEDS ORDERED: FLUO-290 (07:32)
[2024-04-16] MEDS ORDERED: ALPR0.5T3 (07:32)
[2024-04-16 08:11] LABS: URINE PREG TEST NEGATIVE (NEGATIVE)
[2024-04-16 08:18] LABS: KETONE, URINE MANUAL REFLEX OBSCURED mg/dL (NEGATIVE); PROTEIN, URINE MANUAL REFLEX OBSCURED mg/dL (NEGATIVE); UROBILINOGEN, UA MANUAL REFLEX OBSCURED mg/dl (NORMAL)
[2024-04-16 08:19] LABS: NITRITE, URINE MANUAL RFX OBSCURED (NEGATIVE)
[2024-04-16 08:33] LABS: HYALINE CAST, URINE RFX NONE SEEN /lpf (0-1); RBC, URINE MAN REFLEX NONE SEEN /hpf (0-3); SQUAMOUS EPITHELIAL URINE RFX 0 /hpf (SMALL AMT); WBC, URINE MAN RFX NONE SEEN /hpf (0-3)
[2024-04-16 08:38] LABS: MICROSCOPIC EXAM RFX PERFORMED
[2024-04-16 09:35] LABS: Trichomonas vaginalis (AMP) NOT DETECTED (NEGATIVE)
[2024-04-16 09:58] LABS: GC DNA AMPLIFICATION NEGATIVE (NEGATIVE)
[2024-04-16] MEDS ORDERED: CEFD1CAP9 PO (10:56)
[2024-04-16] MEDS: CEFDINIR 300 MG CAP (OMNICEF) PO ONE (11:01)
== END 2024-04-16 11:06 | disposition home or self-care (01) ==
LOC: M ED 07:17
DX: N30.00 Acute cystitis without hematuria (principal); N10 Acute pyelonephritis; F41.9 Anxiety disorder, unspecified; F32.A Depression, unspecified; Z79.2 Long term (current) use of antibiotics; Z79.899 Other long term (current) drug therapy

== ENCOUNTER 2024-06-06 11:58 | Emergency (ER) | payer MEDICAID, OTHER, SELFPAY ==
[~2024-06-06] VITALS: Ht 152.4 cm; Wt 61.6 kg
[~2024-06-06 11:58] MED LIST changes: +ALPR0.5T3; +CEFD1CAP9 PO; +FLUO-290
[2024-06-06 12:02] VITALS: BP 114/73; TEMP 97.9; O2SAT 99
[2024-06-06] MEDS ORDERED: ACET-897 PO (12:18)
== END 2024-06-06 15:08 | disposition home or self-care (01) ==
LOC: M ED 11:58
DX: J06.9 Acute upper respiratory infection, unspecified (principal); J45.909 Unspecified asthma, uncomplicated; Z79.1 Long term (current) use of non-steroidal anti-inflammatories (NSAID); Z79.899 Other long term (current) drug therapy

== ENCOUNTER → 2024-09-01 | Outpatient (REF) | payer MEDICAID ==
[~2024-09-01] MED LIST changes: +ACET-897 PO; -TRIA25CR TOP; +TRIA80CR15 TOP
[2024-09-03 15:38] LABS: HPV APTIMA Not Detected (Not Detected)
== END ==
LOC: M LAB REF 18:09
PROVIDERS: ATTEND Nurse Practitioner Family
DX: Z12.4 Encounter for screening for malignant neoplasm of cervix (principal)

== ENCOUNTER → 2024-12-06 | Outpatient (REF) | payer OTHER | LOC: M LAB REF 17:27 | PROVIDERS: ATTEND Physician Assistant | DX: B34.9 Viral infection, unspecified (principal) ==

== ENCOUNTER 2025-01-03 10:52 | Emergency (ER) | payer OTHER ==
[~2025-01-03] VITALS: Ht 149.9 cm; Wt 64.7 kg
[2025-01-03 11:48] LABS: BASO # 0.1 10^3/uL (0.0-0.2); BASO % 0.8 % (0.0-1.0); EOS # 0.2 10^3/uL (0.0-0.5); EOS % 2.0 % (0.0-3.0); LYMPH # 2.6 10^3/uL (1.5-5.0); LYMPH % 27.2 % (24.0-44.0); MONO # 0.7 10^3/uL (0.0-0.8); MONO % 7.4 % (2.0-8.0); NEUTROPHILS # 5.9 10^3/uL (1.5-8.5); NEUTROPHILS % 62.3 % (36.0-66.0); PLATELET COUNT, AUTOMATED 303 10^3/uL (150-450)
[2025-01-03 11:58] LABS: KETONE, URINE AUTO RFX NEGATIVE (NEGATIVE); MUCUS, URINE RFX SMALL (NEGATIVE); NITRITE, URINE AUTO RFX NEGATIVE (NEGATIVE); RBC, URINE AUTO RFX 0 /HPF (0-3); SQUAM EPITHELIAL CELL UR AURFX 3 /HPF (0-6); WBC, URINE AUTO RFX 0 /HPF (0-3)
[2025-01-03 12:02] LABS: LEUKOCYTE ESTERASE UR AUTO RFX 1+ (NEGATIVE)
[2025-01-03 12:04] LABS: CALCIUM LEVEL 9.6 MG/DL (8.5-10.1); CARBON DIOXIDE LEVEL 26.0 MMOL/L (20-31); CHLORIDE LEVEL 104.0 MMOL/L (98-107); CREATININE FOR GFR 1.15 MG/DL (0.55-1.30); GLOMERULAR FILTRATION RATE 64.9 (>60); POTASSIUM SERUM 4.2 MMOL/L (3.5-5.1); SODIUM LEVEL 139.0 MMOL/L (136-145)
[2025-01-03 12:18] LABS: HCG, SERUM QUANTITATIVE 3872.6 MIU/ML (<4.2)
[2025-01-03 12:46] LABS: Trichomonas vaginalis (AMP) NOT DETECTED (NEGATIVE)
[2025-01-03 13:09] LABS: GC DNA AMPLIFICATION NEGATIVE (NEGATIVE)
[2025-01-03] MEDS ORDERED: METR-265 PO (16:00)
[2025-01-03 17:21] VITALS: BP 125/81; TEMP 98.5; O2SAT 98
== END 2025-01-03 17:25 | disposition home or self-care (01) ==
LOC: M ED 10:52
DX: O23.591 Infection of other part of genital tract in pregnancy, first trimester (principal); Z79.1 Long term (current) use of non-steroidal anti-inflammatories (NSAID); Z79.899 Other long term (current) drug therapy; Z3A.01 Less than 8 weeks gestation of pregnancy

== ENCOUNTER → 2025-01-05 | Outpatient (CLI) | payer OTHER ==
[~2025-01-05] MED LIST changes: +METR-265 PO
== END ==
LOC: M WUC 11:23
DX: R10.20 Pelvic and perineal pain unspecified side (principal)

== ENCOUNTER 2025-01-10 17:09 | Emergency (ER) | payer OTHER ==
[~2025-01-10] VITALS: Ht 149.9 cm; Wt 63.3 kg
[2025-01-10] MEDS ORDERED: DRAM1CHW PO (17:16)
[2025-01-10 18:56] LABS: BASO # 0.1 10^3/uL (0.0-0.2); BASO % 0.7 % (0.0-1.0); EOS # 0.1 10^3/uL (0.0-0.5); EOS % 0.9 % (0.0-3.0); LYMPH # 3.1 10^3/uL (1.5-5.0); LYMPH % 22.5 % (24.0-44.0); MONO # 0.8 10^3/uL (0.0-0.8); MONO % 5.4 % (2.0-8.0); NEUTROPHILS # 9.7 10^3/uL (1.5-8.5); NEUTROPHILS % 70.1 % (36.0-66.0); PLATELET COUNT, AUTOMATED 285 10^3/uL (150-450)
[2025-01-10 19:20] LABS: CALCIUM LEVEL 9.5 MG/DL (8.5-10.1); CARBON DIOXIDE LEVEL 26 MMOL/L (20-31); CHLORIDE LEVEL 104 MMOL/L (98-107); CREATININE FOR GFR 0.82 MG/DL (0.55-1.30); GLOMERULAR FILTRATION RATE > 90.0 (>60); POTASSIUM SERUM 4.1 MMOL/L (3.5-5.1); SODIUM LEVEL 138 MMOL/L (136-145)
[2025-01-10 19:23] LABS: HCG, SERUM QUALITATIVE POSITIVE (NEGATIVE)
[2025-01-10 19:32] LABS: KETONE, URINE AUTO RFX NEGATIVE (NEGATIVE); LEUKOCYTE ESTERASE UR AUTO RFX NEGATIVE (NEGATIVE); NITRITE, URINE AUTO RFX NEGATIVE (NEGATIVE); RBC, URINE AUTO RFX 1 /HPF (0-3); SQUAM EPITHELIAL CELL UR AURFX 0 /HPF (0-6); WBC, URINE AUTO RFX 0 /HPF (0-3)
[2025-01-10 20:28] LABS: GC DNA AMPLIFICATION NEGATIVE (NEGATIVE)
[2025-01-10 20:58] LABS: HCG, SERUM QUANTITATIVE 41006.0 MIU/ML (<4.2)
[2025-01-10] MEDS: ACETAMINOPHEN *IV* 1,000 MG in IV 1 EA IV ONE (21:08)
[2025-01-10 23:37] VITALS: BP 119/67; TEMP 97; O2SAT 97
== END 2025-01-10 23:37 | disposition home or self-care (01) ==
LOC: M ED 17:09
DX: O26.91 Pregnancy related conditions, unspecified, first trimester (principal); M54.50 Low back pain, unspecified; R11.2 Nausea with vomiting, unspecified; R19.7 Diarrhea, unspecified; Z3A.01 Less than 8 weeks gestation of pregnancy; Z79.899 Other long term (current) drug therapy
CPT/HCPCS: 76775; 76801; 80048; 81001; 84702; 84703; 85025; 87810; 87850; 93976; 96365; 99284; J0131

== ENCOUNTER → 2025-02-19 | Outpatient (CLI) | payer OTHER ==
[~2025-02-19] MED LIST changes: +DRAM1CHW PO
[2025-02-19 17:41] LABS: PLATELET COUNT, AUTOMATED 280 10^3/uL (150-450)
[2025-02-19 18:09] LABS: HIV 1&2 SCREEN NEGATIVE (NEGATIVE)
[2025-02-19 18:18] LABS: HEPATITIS C VIRUS ABY INDEX < 0.02 INDEX (<0.8)
[2025-02-19 21:14] LABS: Trichomonas vaginalis (AMP) NOT DETECTED (NEGATIVE)
[2025-02-19 21:38] LABS: GC DNA AMPLIFICATION NEGATIVE (NEGATIVE)
== END ==
LOC: M PLALAB 14:01
PROVIDERS: ATTEND Specialist
DX: Z34.81 Encounter for supervision of other normal pregnancy, first trimester (principal)

== ENCOUNTER → 2025-03-09 | Outpatient (REF) | payer OTHER ==
[2025-03-09 18:10] LABS: APPEARANCE, URINE CLEAR (CLEAR); BACTERIA, URINE AUTO NEGATIVE (NEGATIVE); BILIRUBIN, URINE AUTO NEGATIVE (NEGATIVE); BLOOD, URINE BLOOD NEGATIVE (NEGATIVE); GLUCOSE, URINE (UA) AUTO NEGATIVE (NEGATIVE); KETONE, URINE AUTO NEGATIVE (NEGATIVE); LEUKOCYTE ESTERASE, URINE AUTO NEGATIVE (NEGATIVE); MUCUS, URINE SMALL (NEGATIVE); NITRITE, URINE AUTO NEGATIVE (NEGATIVE); PROTEIN, URINE AUTO NEGATIVE (NEGATIVE); RBC, URINE AUTO 0 /HPF (0-3); SPECIFIC GRAVITY URINE AUTO 1.028 (1.002-1.035); SQUAMOUS EPITHELIAL CELL UR AU 2 /HPF (0-6); UROBILINOGEN, URINE AUTO 0.2 mg/dL (0.0-2.0); WBC, URINE AUTO 1 /HPF (0-3)
== END ==
LOC: M LAB REF 17:08
PROVIDERS: ATTEND Physician Assistant Medical
DX: N39.0 Urinary tract infection, site not specified (principal)